=== PATIENT | male | born 1955 | race Caucasian/White ===

== ENCOUNTER 2020-01-03 17:13 | Inpatient (IN) | payer OTHER ==
[~2020-01-03] VITALS: Ht 188 cm; Wt 107.8 kg
[~2020-01-03 17:13] MED LIST: LIDOcaine 2% (20 mg/ml) 5ml cardiac syringe ONE; MAGNESIUM SULFATE 4 MEQ/ML (5gm/10ml) injection ONE; albumin (human) 25% 100 ML IV solution IV ONE; aminocaproic acid 250 MG/1 ML inj. ONE; calcium chloride 100 MG/1 ML inj IV ONE; heparin 1,000 units/ml 10ml inj ONE; heparin 10,000 units/1 ML INJ ONE; methylPREDNISolone sod. succ. 500mg inj ONE; papaverine 30 mg/ml 2ml inj. ONE; sodium bicarbonate (8.4%) 1 mEq/ml syringe ONE
[2020-01-03 18:04] LABS: BASOPHILS # (AUTO) 0.1 X10'3 (0-0.2); BASOPHILS % (AUTO) 0.4 % (0-1); EOSINOPHILS # (AUTO) 0.2 X10'3 (0-0.9); EOSINOPHILS % (AUTO) 1.9 % (0-6); HEMATOCRIT 47.9 % (42.0-52.0); HEMOGLOBIN 16.1 g/dl (14.0-17.9); LYMPHOCYTES # (AUTO) 1.4 X10'3 (1.1-4.8); LYMPHOCYTES % (AUTO) 10.3 % (21-51); MEAN CORPUSCULAR HEMOGLOBIN 30.6 PG (27.0-31.0); MEAN CORPUSCULAR HGB CONC 33.6 g/dL (33.0-36.5); MEAN PLATELET VOLUME 8.5 FL (7.4-10.4); MONOCYTES # (AUTO) 0.6 X10'3 (0-0.9); MONOCYTES % (AUTO) 4.8 % (2-12); NEUTROPHILS # (AUTO) 11.1 X10'3 (1.8-7.7); NEUTROPHILS % (AUTO) 82.6 % (42-75); PLATELET COUNT 249 X10'3 (140-440); RED BLOOD COUNT 5.27 X10'6 (4.70-6.10); RED CELL DISTRIBUTION WIDTH 13.9 % (11.5-14.5); WHITE BLOOD COUNT 13.4 X10'3 (4.5-11.0)
[2020-01-03 18:19] LABS: ALANINE AMINOTRANSFERASE 16 U/L (12-78); ALBUMIN 3.8 G/DL (3.4-5.0); ALBUMIN/GLOBULIN RATIO 1.1 (1.1-1.5); ALKALINE PHOSPHATASE 120 IU/L (46-116); ANION GAP 9 (8-16); ASPARTATE AMINO TRANSFERASE 18 U/L (10-37); BILIRUBIN,TOTAL 0.2 MG/DL (0.1-1.0); BLOOD UREA NITROGEN 14 MG/DL (7-18); BUN/CREATININE RATIO 14.4 (5.4-32.0); CALCIUM 9.2 MG/DL (8.5-10.1); CHLORIDE 103 MMOL/L (99-107); CREATININE 0.97 MG/DL (0.60-1.10); GLUCOSE 102 MG/DL (70-104); POTASSIUM 3.4 MMOL/L (3.5-5.1); SODIUM 140 MMOL/L (135-145); TOTAL CARBON DIOXIDE 27.9 MMOL/L (24-32); TOTAL PROTEIN 7.2 G/DL (6.4-8.2); eGFR 78 ML/MIN
[2020-01-03] MEDS ORDERED: enoxaparin 100mg/ml syringe SUBCUT ONE (18:25)
[2020-01-03 18:27] LABS: MAGNESIUM 2.3 MG/DL (1.5-2.4)
[2020-01-03] MEDS ORDERED: PHEN100C12 PO (18:34)
[2020-01-03] MEDS ORDERED: LOSA1TAB3 PO (18:35)
[2020-01-03] MEDS ORDERED: ALBU6.7H9 INH (18:38)
[2020-01-03] MEDS ORDERED: FLUT1BLS10 (18:38)
[2020-01-03] MEDS ORDERED: FLUT1DIS20 INH (18:38)
[2020-01-03] MEDS ORDERED: SIMV-42 PO (18:38)
--- NOTE | 2020-01-03 20:51 | NUR ---
MD Simon - Reconditioner and DO Christiano - Hospitalist consulting with patient at bedside now.
[2020-01-03] MEDS ORDERED: normal saline 1000ml 1,000 ML IV SCH (21:00)
[2020-01-03] MEDS ORDERED: magnesium 4gm in 100ml NS 100 ML IV PRN (21:05)
[2020-01-03] MEDS ORDERED: magnesium hydroxide 30ml (MOM) UD suspension PO PRN (21:05)
[2020-01-03] MEDS ORDERED: magnesium 2GM in 50ml NS 50 ML IV PRN (21:05)
[2020-01-03] MEDS ORDERED: potassium CL 10mEq/100ml bag 100 ML IV PRN (21:05)
[2020-01-03] MEDS ORDERED: acetaminophen 325mg tablet PO PRN (21:05)
[2020-01-03] MEDS ORDERED: potassium Cl 20 mEq SR tablet PO PRN (21:05)
[2020-01-03] MEDS ORDERED: potassium Cl 20mEq/100mL bag 100 ML IV PRN (21:05)
[2020-01-03] MEDS ORDERED: ondansetron/PF 4mg/2ml inj IV PRN (21:05)
[2020-01-03] MEDS ORDERED: mag hydrox/Alum hydrox/simeth 30ml oral suspension PO PRN (21:05)
[2020-01-03] MEDS ORDERED: heparin 10,000 units/1 ML INJ IV PRN (21:05)
[2020-01-03] MEDS ORDERED: ipratropium/albuterol 3ml nebule NEB PRN (21:05)
--- NOTE | 2020-01-03 21:17 | NUR ---
Per Dr. Montes, pt. can have clear liquids until breakfast. Angiogram to be done in the afternoon tomorrow.
[2020-01-03] MEDS ORDERED: nitroGLYCERIN 0.4mg/hour patch TD SCH (21:20)
[2020-01-03 21:32] LABS: PARTIAL THROMBOPLASTIN TIME 29 SECONDS (22-32)
[2020-01-03] MEDS: nicotine 21mg patch - 24 hr TD SCH (21:47)
--- NOTE | 2020-01-03 21:50 | NUR ---
Patient in room ED 8. I have received report from SHAHZAD LEWIS and had the opportunity to ask questions. AWAITING PATIENT ARRIVAL TO [facility].
--- NOTE | 2020-01-03 21:55 | NUR ---
PATIENT UP TO FLOOR 2155. PATIENT AMBULATED TO BED WITHOUT DIFFICULTY. BELONGINGS PLACED IN BEDSIDE TABLE. PLACED ON FILLING SEPARATOR 58 AND IS IN NSR. ON ROOM AIR AND STABLE AT THIS TIME. VS OBTAINED AND WNL. ALERT AND ORIENTED TO PERSON, PLACE, TIME AND EVENTS.
[2020-01-03 22:29] VITALS: BP 140/82
[2020-01-03] MEDS ORDERED: LORazepam 1 MG tablet PO PRN (22:30)
[2020-01-03] MEDS: temazepam 15mg capsule PO PRN (23:20)
[2020-01-04] VITALS (14 sets, daily range): BP systolic 114–166; BP diastolic 66–103
[2020-01-04 00:12] LABS: PHENYTOIN (DILANTIN) 2.5 UG/ML (10.0-20.0)
--- NOTE | 2020-01-04 01:15 | NUR ---
PAGER ID: [phone] MESSAGE: Ext. [phone], SHAHZAD Bailey for 3027A. 6 hr troponin 2.01 up from 1.86. EKG showed NSR. Patient stable and sleeping at this time. Just wanted to let you know! Thanks, Leo
[2020-01-04] MEDS: albuterol 2.5 MG/3 ML nebule NEB SCH ×4 (02:26→20:26)
[2020-01-04 05:25] LABS: BASOPHILS % (AUTO) 0.5 % (0-1); EOSINOPHILS # (AUTO) 0.3 X10'3 (0-0.9); EOSINOPHILS % (AUTO) 4.7 % (0-6); HEMATOCRIT 45.2 % (42.0-52.0); LYMPHOCYTES # (AUTO) 2.3 X10'3 (1.1-4.8); LYMPHOCYTES % (AUTO) 33.7 % (21-51); MEAN CORPUSCULAR HEMOGLOBIN 30.3 PG (27.0-31.0); MEAN CORPUSCULAR HGB CONC 33.1 g/dL (33.0-36.5); MEAN CORPUSCULAR VOLUME 91.3 FL (78-98); MEAN PLATELET VOLUME 8.7 FL (7.4-10.4); MONOCYTES # (AUTO) 0.4 X10'3 (0-0.9); MONOCYTES % (AUTO) 6.6 % (2-12); NEUTROPHILS # (AUTO) 3.7 X10'3 (1.8-7.7); NEUTROPHILS % (AUTO) 54.5 % (42-75); PLATELET COUNT 227 X10'3 (140-440); RED BLOOD COUNT 4.96 X10'6 (4.70-6.10); RED CELL DISTRIBUTION WIDTH 13.7 % (11.5-14.5); WHITE BLOOD COUNT 6.7 X10'3 (4.5-11.0)
[2020-01-04 05:35] LABS: ALANINE AMINOTRANSFERASE 13 U/L (12-78); ALBUMIN 3.3 G/DL (3.4-5.0); ALBUMIN/GLOBULIN RATIO 1.1 (1.1-1.5); ALKALINE PHOSPHATASE 104 IU/L (46-116); ANION GAP 7 (8-16); ASPARTATE AMINO TRANSFERASE 22 U/L (10-37); BILIRUBIN,TOTAL 0.3 MG/DL (0.1-1.0); BLOOD UREA NITROGEN 11 MG/DL (7-18); BUN/CREATININE RATIO 12.9 (5.4-32.0); CALCIUM 8.5 MG/DL (8.5-10.1); CHLORIDE 106 MMOL/L (99-107); CREATININE 0.85 MG/DL (0.60-1.10); GLUCOSE 87 MG/DL (70-104); POTASSIUM 3.2 MMOL/L (3.5-5.1); SODIUM 143 MMOL/L (135-145); TOTAL CARBON DIOXIDE 30.3 MMOL/L (24-32); TOTAL PROTEIN 6.2 G/DL (6.4-8.2); eGFR > 90 ML/MIN
[2020-01-04 05:38] LABS: CHOL/HDL RATIO 5.5 (0.00-4.99); CHOLESTEROL 182 MG/DL (0-200); HDL CHOLESTEROL 33 MG/DL (35-60); LDL CHOLESTEROL 116 MG/DL (50-100); TRIGLYCERIDES 181 MG/DL (20-135)
[2020-01-04] MEDS ORDERED: heparin 10,000 units/1 ML INJ IV ONE (06:30)
[2020-01-04] MEDS ORDERED: heparin 25,000 UNIT/250ml bag 250 ML IV SCH (06:30)
--- NOTE | 2020-01-04 06:49 | NUR ---
Patient in room U 3027A. I have received report from SHAHZAD CUEVAS AND JULIO RN and had the opportunity to ask questions and assume patient care. Addendum: 01/04/20 at 0654 by Gopi Kruger RN Problems reprioritized. Patient report given, questions answered & plan of care reviewed with SHAHZAD CUEVAS AND SHAHZAD KIM.
[2020-01-04] MEDS: tirofiban 5mg in NS 100mL 100 ML IV SCH ×2 (06:53→09:58)
--- NOTE | 2020-01-04 07:18 | NUR ---
Patient in room PCU 3027. I have received report from Leo PIKE and had the opportunity to ask questions and assume patient care.
[2020-01-04] MEDS: budesonide 0.5mg/2ml UD nebule IH SCH ×2 (08:18→20:27)
--- NOTE | 2020-01-04 09:40 | NUR ---
Paged Dr. Hurd: PAGER ID: [phone] MESSAGE: RE: Estevan Barbour [id number].. Patient complaints of headache. Can we have a PRN medicine for pain? Thank you. Charito [phone]
[2020-01-04] MEDS: losartan 50mg tablet PO SCH (09:41)
[2020-01-04] MEDS: HYDROchlorothiazide 12.5mg capsule PO SCH (09:41)
[2020-01-04] MEDS: phenytoin sod ER 100mg capsule PO SCH ×2 (09:41→20:57)
[2020-01-04] MEDS ORDERED: acetaminophen 325mg tablet PO PRN (09:45)
[2020-01-04] MEDS ORDERED: fentaNYL/PF 50MCG/1 ML 2ML syringe ONE (13:24)
[2020-01-04] MEDS ORDERED: midazolam 2 mg/2 ml injection ONE ×2 (13:24→13:58)
[2020-01-04] MEDS ORDERED: LIDOcaine 1% (10mg/ml)w/preservative injection 20ml MDV ONE (13:25)
[2020-01-04] MEDS ORDERED: iohexol 350MG/ML 100ml bottle IV ONE (13:25)
[2020-01-04] MEDS ORDERED: iohexol 350 MG/ML 50ML vial IV ONE (13:25)
--- NOTE | 2020-01-04 13:42 | NUR ---
Patient headed to cath lad via wheelchair and Nurse. Patient VSS per MD orders to cath.
[2020-01-04] MEDS ORDERED: hydrALAZINE 20mg/ml inj. IV ONE (14:28)
[2020-01-04] MEDS ORDERED: nitroGLYCERIN 0.4mg SUBLingual tab SL PRN (15:05)
[2020-01-04] MEDS ORDERED: OXAZEpam 15mg capsule PO PRN (15:05)
[2020-01-04] MEDS ORDERED: ondansetron/PF 4mg/2ml inj IV PRN (15:05)
[2020-01-04] MEDS ORDERED: HYDROcodone/acetaminophen 10/325mg tab PO PRN (15:05)
[2020-01-04] MEDS ORDERED: proCHLORperazine 10 MG/2 ml inj IV PRN (15:05)
[2020-01-04] MEDS ORDERED: Insulin Reg/NS 100units/100mL 100 ML IV SCH (15:17)
[2020-01-04] MEDS ORDERED: gabapentin 400mg capsule PO ONE (15:20)
[2020-01-04] MEDS ORDERED: MALTODEXTRIN/FRUCTOSE 0.68 KCAL/ML LIQUID 296ML BOTTLE PO ONE (15:20)
[2020-01-04] MEDS ORDERED: insulin glargine (Lantus) pen - multi-dose SQ PRN (15:20)
[2020-01-04] MEDS ORDERED: MESSAGE TO NURSING PO ONE ×3 (15:20)
[2020-01-04] MEDS ORDERED: dextrose 50%-water 50ml dispensing syringe IV PRN (15:20)
[2020-01-04] MEDS: HYDROcodone/acetaminophen 5mg/325mg tablet PO PRN ×2 (15:44→20:52)
[2020-01-04] MEDS: normal saline 1000ml 1,000 ML IV SCH (15:45)
[2020-01-04 16:08] LABS: PARTIAL THROMBOPLASTIN TIME 31 SECONDS (22-32)
[2020-01-04] MEDS ORDERED: potassium CL 10mEq/100ml bag 100 ML IV PRN (17:05)
[2020-01-04] MEDS ORDERED: potassium Cl 20 mEq SR tablet PO PRN (17:05)
[2020-01-04] MEDS: potassium Cl 20 mEq SR tablet PO PRN (17:20)
--- NOTE | 2020-01-04 18:25 | NUR ---
Problems reprioritized. Patient report given, questions answered & plan of care reviewed with Leo PIKE. Patient stable to transfer care.
--- NOTE | 2020-01-04 18:27 | NUR ---
Problems reprioritized. Patient report given, questions answered & plan of care reviewed with Leo PIKE. Patient stable at transfer of care.
--- NOTE | 2020-01-04 18:30 | NUR ---
Patient in room PCU 3021p. I have received report from Charito RN and Raquel RN and had the opportunity to ask questions and assume patient care. Patient sleeping for bedside report. Flat until 2240. NS infusing at 100 mL/hr per provider order. Will continue to monitor closely.
[2020-01-04] MEDS ORDERED: metoprolol tartrate 12.5mg (1/2 tablet) PO SCH (20:00)
[2020-01-04] MEDS: temazepam 15mg capsule PO PRN (20:58)
[2020-01-04] MEDS: atorvastatin 20mg tablet PO SCH (20:58)
[2020-01-04] MEDS: metoprolol tartrate 12.5mg (1/2 tablet) PO SCH (20:59)
[2020-01-04] MEDS: nicotine 21mg patch - 24 hr TD SCH (21:00)
[2020-01-04] MEDS: amLODIPine 2.5mg tablet PO SCH (21:07)
[2020-01-05] MEDS: potassium Cl 20 mEq SR tablet PO PRN (01:05)
[2020-01-05] MEDS: albuterol 2.5 MG/3 ML nebule NEB SCH ×4 (02:34→20:26)
[2020-01-05] MEDS: normal saline 1000ml 1,000 ML IV SCH (02:45)
--- NOTE | 2020-01-05 03:51 | NUR ---
PATIENT REFUSED 0300 VS. EDUCATED PATIENT ON IMPORTANCE OF Q4HR VS AND FACT THAT PATIENT IS POST-OP FROM HEART CATH. WILL CONTINUE TO REVISIT EDUCATION TOPICS.
[2020-01-05] MEDS ORDERED: MESSAGE TO NURSING PO ONE (05:30)
[2020-01-05 05:59] LABS: BASOPHILS % (AUTO) 0.5 % (0-1); EOSINOPHILS # (AUTO) 0.3 X10'3 (0-0.9); EOSINOPHILS % (AUTO) 4.2 % (0-6); HEMATOCRIT 45.1 % (42.0-52.0); HEMOGLOBIN 15.1 g/dl (14.0-17.9); LYMPHOCYTES # (AUTO) 1.4 X10'3 (1.1-4.8); LYMPHOCYTES % (AUTO) 17.5 % (21-51); MEAN CORPUSCULAR HEMOGLOBIN 30.4 PG (27.0-31.0); MEAN CORPUSCULAR HGB CONC 33.4 g/dL (33.0-36.5); MEAN CORPUSCULAR VOLUME 90.9 FL (78-98); MEAN PLATELET VOLUME 9.5 FL (7.4-10.4); MONOCYTES # (AUTO) 0.6 X10'3 (0-0.9); MONOCYTES % (AUTO) 6.8 % (2-12); NEUTROPHILS # (AUTO) 5.8 X10'3 (1.8-7.7); PLATELET COUNT 203 X10'3 (140-440); RED BLOOD COUNT 4.96 X10'6 (4.70-6.10); RED CELL DISTRIBUTION WIDTH 13.8 % (11.5-14.5); WHITE BLOOD COUNT 8.2 X10'3 (4.5-11.0)
[2020-01-05 06:06] LABS: ALANINE AMINOTRANSFERASE 16 U/L (12-78); ALBUMIN 3.2 G/DL (3.4-5.0); ALKALINE PHOSPHATASE 107 IU/L (46-116); ANION GAP 6 (8-16); ASPARTATE AMINO TRANSFERASE 18 U/L (10-37); BILIRUBIN,TOTAL 0.2 MG/DL (0.1-1.0); BLOOD UREA NITROGEN 12 MG/DL (7-18); BUN/CREATININE RATIO 15.4 (5.4-32.0); CALCIUM 8.4 MG/DL (8.5-10.1); CHLORIDE 109 MMOL/L (99-107); CREATININE 0.78 MG/DL (0.60-1.10); GLUCOSE 77 MG/DL (70-104); POTASSIUM 3.8 MMOL/L (3.5-5.1); SODIUM 141 MMOL/L (135-145); TOTAL CARBON DIOXIDE 26.3 MMOL/L (24-32); TOTAL PROTEIN 6.4 G/DL (6.4-8.2); eGFR > 90 ML/MIN
--- NOTE | 2020-01-05 06:14 | NUR ---
Problems reprioritized. Patient report given, questions answered & plan of care reviewed with SHAHZAD CUEVAS.
--- NOTE | 2020-01-05 06:40 | NUR ---
Patient in room PCU 3027. I have received report from Leo PIKE and had the opportunity to ask questions and assume patient care.
--- NOTE | 2020-01-05 06:42 | NUR ---
Patient in room U 3027. I have received report from Leo IPKE and had the opportunity to ask questions and assume patient care. Patient asleep in bed and resting comfortably.
[2020-01-05 07:00] VITALS: BP 151/86
[2020-01-05] MEDS: amLODIPine 2.5mg tablet PO SCH ×2 (07:36→20:36)
[2020-01-05] MEDS: HYDROchlorothiazide 12.5mg capsule PO SCH (07:36)
[2020-01-05] MEDS: losartan 50mg tablet PO SCH (07:36)
[2020-01-05] MEDS: phenytoin sod ER 100mg capsule PO SCH ×2 (07:37→20:37)
[2020-01-05] MEDS: metoprolol tartrate 12.5mg (1/2 tablet) PO SCH ×2 (07:37→20:39)
[2020-01-05] MEDS: HYDROcodone/acetaminophen 5mg/325mg tablet PO PRN (07:38)
[2020-01-05] MEDS: budesonide 0.5mg/2ml UD nebule IH SCH ×2 (08:38→20:26)
[2020-01-05 09:41] LABS: ABG BASE EXCESS 3.9 mmol/L (-2.0-3.0); ABG HCO3 27.5 mmol/L (22.0-26.0); ABG OXYGEN SATURATION 95.7 % (95-98); ABG PCO2 (T) 38.1 mmHg (35.0-45.0); ABG PH (T) 7.476 (7.350-7.450); ABG PO2 (T) 76.9 mmHg (83-108); ALLEN'S TEST POSITIVE; FMetHb 0.1 % (0.3-1.12); FO2Hb 94.6 % (94-100); TOTAL HEMOGLOBIN 16.3 G/dl (14.0-17.9)
[2020-01-05 11:00] VITALS: BP 145/79
[2020-01-05 15:00] VITALS: BP 123/69
--- NOTE | 2020-01-05 17:32 | NUR ---
Patient was educated on insulin and hospital protocols in regards to insulin and sugar levels. Patient refused all insulin and blood sugar control, as patient only wanted the medications that he takes at home. Patient stated that, the insulin hurts his belly and gives him bruises throughout abdomen. Patient was educated on insulin administration, but patient still refused all interventions at hospital level. Dr. Medina was notified, No new orders were given. Patient is aware that Blood glucose will be tested ACHS, and the patient will be consulted in insulin and medication. Patient stated that he will not letting us administer any insulin. Will continue to monitor.
--- NOTE | 2020-01-05 18:50 | NUR ---
Problems reprioritized. Patient report given, questions answered & plan of care reviewed with Leo PIKE. Patient stable at transfer of care.
--- NOTE | 2020-01-05 18:50 | NUR ---
Patient in room PCU 3028T. I have received report from FAITH RN AND JULIO RN and had the opportunity to ask questions and assume patient care.
[2020-01-05 19:00] VITALS: BP 150/83
--- NOTE | 2020-01-05 19:01 | NUR ---
[place]ee documentation: I have reviewed and agree with all interventions, assessments performed and documented by SHAHZAD García.\ [place] Medication Administration: For this medication-pass time frame, all medication were reviewed, dispensed, administered and documented per hospital policy by SHAHZAD García.
[2020-01-05] MEDS: nicotine 21mg patch - 24 hr TD SCH (20:00)
[2020-01-05] MEDS: mupirocin 2% ointment 22GM NS SCH ×2 (20:00→20:36)
--- NOTE | 2020-01-05 20:26 | NUR ---
PER DR. LONG, NICOTINE PATCH CONTRAINDICATED PRIOR TO DAY OF SURGERY FOR CABG. EDUCATED PATIENT ON CONTRAINDICATIONS, BEING THAT NICOTINE PROMOTES VASOCONSTRICTION AND DELAYS WOUND HEALING TIME. PATIENT VERBALLY ACKNOWLEDGED TEACHING TOPIC. WILL CONTINUE TO EDUCATE PATIENT ON IMPORTANCE OF ABSTAINING FROM NICOTINE USE.
[2020-01-05] MEDS: atorvastatin 20mg tablet PO SCH (20:36)
--- NOTE | 2020-01-05 23:59 | NUR ---
PATIENT REFUSED 2300 VITAL SIGNS. EDUCATED PATIENT ON IMPORTANCE OF Q4HR VS. WILL CONTINUE TO MONITOR CLOSELY.
[2020-01-06] VITALS (17 sets, daily range): BP systolic 112–189; BP diastolic 51–91
[2020-01-06] MEDS: albuterol 2.5 MG/3 ML nebule NEB SCH ×4 (02:36→21:19)
[2020-01-06] MEDS ORDERED: MALTODEXTRIN/FRUCTOSE 0.68 KCAL/ML LIQUID 296ML BOTTLE PO ONE (03:30)
[2020-01-06] MEDS ORDERED: ceFAZolin 1000mg inj ONE (05:18)
[2020-01-06] MEDS ORDERED: cefazolin/dext.iso 2gm/50ml 50 ML IV ONE (05:30)
[2020-01-06] MEDS ORDERED: gabapentin 400mg capsule PO ONE (05:30)
[2020-01-06] MEDS ORDERED: vancomycin/NS 1 GM ADD-VANTAGE 250 ML IV ONE (05:30)
[2020-01-06] MEDS ORDERED: LORazepam 2 mg/ml vial IV ONE (06:00)
[2020-01-06] MEDS ORDERED: famotidine 20mg tablet PO ONE (06:00)
[2020-01-06 06:05] LABS: ALANINE AMINOTRANSFERASE 19 U/L (12-78); ALBUMIN 3.3 G/DL (3.4-5.0); ALKALINE PHOSPHATASE 102 IU/L (46-116); ANION GAP 8 (8-16); BILIRUBIN,TOTAL 0.3 MG/DL (0.1-1.0); BLOOD UREA NITROGEN 11 MG/DL (7-18); BUN/CREATININE RATIO 12.4 (5.4-32.0); CALCIUM 8.4 MG/DL (8.5-10.1); CHLORIDE 106 MMOL/L (99-107); CREATININE 0.89 MG/DL (0.60-1.10); GLUCOSE 201 MG/DL (70-104); SODIUM 140 MMOL/L (135-145); TOTAL CARBON DIOXIDE 25.6 MMOL/L (24-32); TOTAL PROTEIN 6.5 G/DL (6.4-8.2); eGFR 86 ML/MIN
[2020-01-06 06:06] LABS: ASPARTATE AMINO TRANSFERASE 34 U/L (10-37); POTASSIUM 3.5 MMOL/L (3.5-5.1)
[2020-01-06] MEDS: mupirocin 2% ointment 22GM NS SCH (06:06)
[2020-01-06 06:21] LABS: BASOPHILS % (AUTO) 0.5 % (0-1); EOSINOPHILS # (AUTO) 0.3 X10'3 (0-0.9); EOSINOPHILS % (AUTO) 5.9 % (0-6); HEMOGLOBIN 14.3 g/dl (14.0-17.9); LYMPHOCYTES # (AUTO) 1.2 X10'3 (1.1-4.8); MEAN CORPUSCULAR HEMOGLOBIN 30.5 PG (27.0-31.0); MEAN CORPUSCULAR HGB CONC 33.3 g/dL (33.0-36.5); MEAN CORPUSCULAR VOLUME 91.3 FL (78-98); MEAN PLATELET VOLUME 9.2 FL (7.4-10.4); MONOCYTES # (AUTO) 0.4 X10'3 (0-0.9); MONOCYTES % (AUTO) 8.1 % (2-12); NEUTROPHILS # (AUTO) 3.4 X10'3 (1.8-7.7); NEUTROPHILS % (AUTO) 62.5 % (42-75); PLATELET COUNT 190 X10'3 (140-440); RED CELL DISTRIBUTION WIDTH 13.6 % (11.5-14.5); WHITE BLOOD COUNT 5.4 X10'3 (4.5-11.0)
--- NOTE | 2020-01-06 06:32 | NUR ---
Problems reprioritized. Patient report given, questions answered & plan of care reviewed with SHAHZAD CUEVAS AND SHAHZAD KIM.
--- NOTE | 2020-01-06 06:41 | NUR ---
Patient in room PCU 3027. I have received report from Leo PIKE and had the opportunity to ask questions and assume patient care.
[2020-01-06] MEDS ORDERED: SUFENTANIL CITRATE 50 MCG/ML 2ml ampule IV ONE (06:47)
[2020-01-06] MEDS ORDERED: rocuronium 10mg/ml inj IV ONE ×3 (06:47)
[2020-01-06] MEDS ORDERED: midazolam 2 mg/2 ml injection ONE ×2 (06:47)
[2020-01-06] MEDS ORDERED: propofol inj 20 ML IV ONE (06:47)
[2020-01-06] MEDS ORDERED: niCARDipine in NS 40mg/200ml (0.2mg/ml) IVPB IV ONE (06:48)
[2020-01-06] MEDS ORDERED: nitroGLYCERIN in D5W 50mg/250ml (Tridil) infusion IV ONE (06:48)
[2020-01-06] MEDS ORDERED: protamine sulf. 10mg/ml inj. IV ONE (06:48)
[2020-01-06] MEDS ORDERED: aminocaproic acid 250 MG/1 ML inj. ONE (06:48)
[2020-01-06] MEDS ORDERED: sevoflurane 250ml liquid IH ONE (06:48)
--- NOTE | 2020-01-06 06:50 | NUR ---
CVOR RN bedside for patient. 2 mg IV ativan given. Patient to OR.
[2020-01-06] MEDS: budesonide 0.5mg/2ml UD nebule IH SCH ×2 (07:34→21:19)
[2020-01-06] MEDS: phenytoin sod ER 100mg capsule PO SCH ×2 (08:00→20:11)
[2020-01-06] MEDS ORDERED: ePHEDrine 50MG/ML INJ. ONE (08:12)
[2020-01-06] MEDS ORDERED: papaverine 30 mg/ml 2ml inj. IA ONE (08:17)
[2020-01-06] MEDS ORDERED: heparin 10,000 units/1 ML INJ IR ONE (08:17)
[2020-01-06 08:20] LABS: ABG BASE EXCESS VENOUS 1.5 mmol/L; ABG HCO3 VENOUS 28.5 mmol/L; ABG PCO2 VENOUS 54.8 mmHg; ABG PO2 VENOUS 43.7 mmHg; CL (ABG) 103 mmol/L (99-107); FCOHb VENOUS 1.1 %; FHHb VENOUS 20.9 %; FMetHb VENOUS 0.5 %; FO2Hb VENOUS 77.5 %; GLUCOSE (ABG) 100 mg/dl (70-104); IONIZED CA (ABG) 1.16 mmol/L (1.03-1.32); K (ABG) 3.9 mmol/L (3.3-5.1); NA (ABG) 136 mmol/L (135-145); TOTAL HEMOGLOBIN 14.2 G/dl (14.0-17.9)
[2020-01-06 08:51] LABS: ABG HCO3 26.3 mmol/L (22.0-26.0); ABG OXYGEN SATURATION 99.3 % (95-98); ABG PCO2 44.5 mmHg (35.0-45.0); ABG PH 7.389 (7.350-7.450); CL (ABG) 103 mmol/L (99-107); FCOHb 0.4 % (0.5-1.5); FMetHb 0.4 % (0.3-1.12); FO2Hb 98.5 % (94-100); GLUCOSE (ABG) 93 mg/dl (70-104); IONIZED CA (ABG) 1.04 mmol/L (1.03-1.32); K (ABG) 4.7 mmol/L (3.3-5.1); NA (ABG) 134 mmol/L (135-145); TOTAL HEMOGLOBIN 11.6 G/dl (14.0-17.9)
[2020-01-06 09:20] LABS: ABG BASE EXCESS 0.6 mmol/L (-2.0-3.0); ABG HCO3 25.2 mmol/L (22.0-26.0); ABG PCO2 40.3 mmHg (35.0-45.0); ABG PH 7.414 (7.350-7.450); ABG PO2 194.8 mmHg (60.0-100.0); CL (ABG) 104 mmol/L (99-107); FCOHb 0.3 % (0.5-1.5); FMetHb 0.4 % (0.3-1.12); FO2Hb 98.3 % (94-100); GLUCOSE (ABG) 110 mg/dl (70-104); IONIZED CA (ABG) 1.07 mmol/L (1.03-1.32); K (ABG) 5.1 mmol/L (3.3-5.1); NA (ABG) 134 mmol/L (135-145); TOTAL HEMOGLOBIN 12.1 G/dl (14.0-17.9)
[2020-01-06 09:41] LABS: ABG BASE EXCESS 3.1 mmol/L (-2.0-3.0); ABG HCO3 28.3 mmol/L (22.0-26.0); ABG OXYGEN SATURATION 98.8 % (95-98); ABG PCO2 45.8 mmHg (35.0-45.0); ABG PH 7.409 (7.350-7.450); ABG PO2 159.3 mmHg (60.0-100.0); CL (ABG) 103 mmol/L (99-107); FCOHb 0.2 % (0.5-1.5); FMetHb 0.5 % (0.3-1.12); FO2Hb 98.1 % (94-100); GLUCOSE (ABG) 123 mg/dl (70-104); IONIZED CA (ABG) 1.33 mmol/L (1.03-1.32); NA (ABG) 133 mmol/L (135-145); TOTAL HEMOGLOBIN 11.3 G/dl (14.0-17.9)
[2020-01-06 10:01] LABS: ABG BASE EXCESS VENOUS -2.4 mmol/L; ABG HCO3 VENOUS 24.5 mmol/L; ABG PCO2 VENOUS 51.3 mmHg; ABG PO2 VENOUS 55.5 mmHg; CL (ABG) 103 mmol/L (99-107); FCOHb VENOUS 0.5 %; FHHb VENOUS 11.5 %; FMetHb VENOUS 0.5 %; FO2Hb VENOUS 87.5 %; GLUCOSE (ABG) 127 mg/dl (70-104); K (ABG) 4.4 mmol/L (3.3-5.1); NA (ABG) 134 mmol/L (135-145); TOTAL HEMOGLOBIN 12.1 G/dl (14.0-17.9)
[2020-01-06] MEDS ORDERED: acetaminophen 1,000mg/100ml IV 100 ML IV ONE (10:20)
[2020-01-06] MEDS ORDERED: niCARDipine-NS 40mg/200ml IVPB 200 ML IV PRN (10:39)
[2020-01-06] MEDS ORDERED: Insulin Reg/NS 100units/100mL 100 ML IV SCH (10:39)
[2020-01-06] MEDS ORDERED: nitroGLYCERIN-Tridil 50MG/D5W 250 ML IV PRN (10:39)
[2020-01-06] MEDS ORDERED: DOPamine 400mg/D5W 250ml 250 ML IV PRN (10:39)
[2020-01-06 10:40] LABS: ISTAT ANION GAP 7 (8-12); ISTAT BUN 11 mg/dL (6-19); ISTAT CL 104 mmol/L (99-107); ISTAT CREATININE 0.8 mg/dL (0.8-1.3); ISTAT GLUCOSE 101 mg/dL (70-104); ISTAT HGB 10.9 g/dl (14.0-18.0); ISTAT Hct 32 %PCV (42-52); ISTAT IONIZED CALCIUM 1.07 mmol/L (1.03-1.32); ISTAT NA 137 mmol/L (135-145); ISTAT TOTAL CO2 26 mmol/L (24-32); ISTAT eGFR > 90 ML/MIN; POC BUN/CREATININE RATIO 13.8 (5.4-32.0)
[2020-01-06 10:40] LABS: ISTAT ANION GAP 11 (8-12); ISTAT BUN 12 mg/dL (6-19); ISTAT CL 102 mmol/L (99-107); ISTAT CREATININE 0.7 mg/dL (0.8-1.3); ISTAT GLUCOSE 110 mg/dL (70-104); ISTAT HGB 15.6 g/dl (14.0-18.0); ISTAT Hct 46 %PCV (42-52); ISTAT IONIZED CALCIUM 1.24 mmol/L (1.03-1.32); ISTAT K 3.5 mmol/L (3.5-5.1); ISTAT NA 140 mmol/L (135-145); ISTAT TOTAL CO2 27 mmol/L (24-32); ISTAT eGFR > 90 ML/MIN; POC BUN/CREATININE RATIO 17.1 (5.4-32.0)
[2020-01-06] MEDS ORDERED: magnesium citrate 296ml oral solution PO PRN (10:40)
[2020-01-06] MEDS ORDERED: metoclopramide 5 mg/ml inj IV PRN (10:40)
[2020-01-06] MEDS ORDERED: sodium phosphate inj. 15 MMOL in dextrose 5%-water 250 ML IV PRN (10:40)
[2020-01-06] MEDS ORDERED: insulin glargine (Lantus) pen - multi-dose SQ PRN (10:40)
[2020-01-06] MEDS ORDERED: dextrose 50%-water 50ml dispensing syringe IV PRN (10:40)
[2020-01-06] MEDS ORDERED: ondansetron/PF 4mg/2ml inj IV PRN (10:40)
[2020-01-06] MEDS ORDERED: magnesium hydroxide 30ml (MOM) UD suspension PO PRN (10:40)
[2020-01-06] MEDS ORDERED: pantoprazole 40 MG vial IV ONE (10:40)
[2020-01-06] MEDS ORDERED: normal saline 250ml IV soln 250 ML IV PRN (10:40)
[2020-01-06] MEDS ORDERED: Neutra Phos packet PO PRN (10:40)
[2020-01-06] MEDS ORDERED: bisacodyl 10mg suppository rectal RC PRN (10:40)
[2020-01-06] MEDS ORDERED: magnesium 4gm in 100ml NS 100 ML IV PRN (10:40)
[2020-01-06] MEDS ORDERED: albumin (Human) 5% 250ml 250 ML IV PRN (10:40)
[2020-01-06] MEDS ORDERED: sodium phosphate inj. 30 MMOL in dextrose 5%-water 250 ML IV PRN (10:40)
[2020-01-06] MEDS ORDERED: acetaminophen 325mg tablet PO PRN (10:40)
[2020-01-06] MEDS ORDERED: mineral oil 133ml enema RC PRN (10:40)
--- NOTE | 2020-01-06 10:45 | NUR ---
Received to room 2040, accompanied by Chetna Childs and surgical crew. Placed on ventilator, to groundwater monitoring technician, arterial line and PA line pressure monitored. Chest tubes to suction at 20 cm. Buchanan cath to gravity drainage. Dressings are dry and intact. See assessment record. All vasoactive drugs are infusing via central line.
[2020-01-06] MEDS ORDERED: morphine 4 MG/ML inj SYRINge ONE (10:52)
[2020-01-06] MEDS: morphine 4 MG/ML inj SYRINge IV PRN ×5 (10:56→23:55)
[2020-01-06] MEDS: Insulin Reg/NS 100units/100mL 100 ML IV SCH (11:00)
[2020-01-06 11:08] LABS: BASOPHILS % (AUTO) 0.2 % (0-1); EOSINOPHILS # (AUTO) 0.2 X10'3 (0-0.9); EOSINOPHILS % (AUTO) 1.3 % (0-6); HEMOGLOBIN 14.2 g/dl (14.0-17.9); LYMPHOCYTES # (AUTO) 0.9 X10'3 (1.1-4.8); LYMPHOCYTES % (AUTO) 6.2 % (21-51); MEAN CORPUSCULAR HGB CONC 32.9 g/dL (33.0-36.5); MEAN CORPUSCULAR VOLUME 91.3 FL (78-98); MEAN PLATELET VOLUME 8.7 FL (7.4-10.4); MONOCYTES # (AUTO) 0.4 X10'3 (0-0.9); MONOCYTES % (AUTO) 2.9 % (2-12); NEUTROPHILS # (AUTO) 13.7 X10'3 (1.8-7.7); NEUTROPHILS % (AUTO) 89.4 % (42-75); PLATELET COUNT 140 X10'3 (140-440); RED BLOOD COUNT 4.71 X10'6 (4.70-6.10); RED CELL DISTRIBUTION WIDTH 13.8 % (11.5-14.5); WHITE BLOOD COUNT 15.3 X10'3 (4.5-11.0)
[2020-01-06] MEDS ORDERED: propofol 1000mg/100ml bottle 100 ML IV ONE (11:08)
[2020-01-06 11:10] LABS: ABG BASE EXCESS -3.3 mmol/L (-2.0-3.0); ABG OXYGEN SATURATION 97.8 % (95-98); ABG PCO2 (T) 45.7 mmHg (35.0-45.0); ABG PH (T) 7.319 (7.350-7.450); ABG PO2 (T) 104.7 mmHg (83-108); FCOHb 0.5 % (0.5-1.5); FMetHb 0.4 % (0.3-1.12); FO2Hb 96.9 % (94-100); PATIENT TEMPERATURE 36.9; PEEP 5 cm H2O; RESPIRATORY RATE 14 b/min; TIDAL VOLUME 600 mL; TOTAL HEMOGLOBIN 15.4 G/dl (14.0-17.9)
--- NOTE | 2020-01-06 11:10 | NUR ---
CABG Consult: Pt s/p CABGx3 will need CABG/HH diet eds once stable prior to discharge. Addendum: 01/06/20 at [address] Amended: Links added.
[2020-01-06 11:18] LABS: PARTIAL THROMBOPLASTIN TIME 27 SECONDS (22-32)
[2020-01-06 11:19] LABS: ALANINE AMINOTRANSFERASE 21 U/L (12-78); ALBUMIN 3.2 G/DL (3.4-5.0); ALBUMIN/GLOBULIN RATIO 1.3 (1.1-1.5); ALKALINE PHOSPHATASE 88 IU/L (46-116); ANION GAP 5 (8-16); ASPARTATE AMINO TRANSFERASE 37 U/L (10-37); BILIRUBIN,TOTAL 0.5 MG/DL (0.1-1.0); BLOOD UREA NITROGEN 11 MG/DL (7-18); BUN/CREATININE RATIO 10.8 (5.4-32.0); CALCIUM 8.1 MG/DL (8.5-10.1); CHLORIDE 109 MMOL/L (99-107); CREATININE 1.02 MG/DL (0.60-1.10); GLUCOSE 149 MG/DL (70-104); MAGNESIUM 2.8 MG/DL (1.5-2.4); PHOSPHORUS 2.8 MG/DL (2.3-4.5); POTASSIUM 4.3 MMOL/L (3.5-5.1); SODIUM 141 MMOL/L (135-145); TOTAL CARBON DIOXIDE 26.6 MMOL/L (24-32); TOTAL PROTEIN 5.7 G/DL (6.4-8.2); eGFR 74 ML/MIN
[2020-01-06] MEDS: sodium chloride 0.45% 1,000 ML IV SCH (11:26)
[2020-01-06] MEDS: potassium Cl 20mEq/100mL bag 100 ML IV PRN ×3 (11:47→17:19)
[2020-01-06] MEDS: gabapentin 300mg capsule PO SCH ×2 (12:34→20:11)
[2020-01-06 13:18] LABS: ISTAT K 5.2 mmol/L (3.5-5.1)
[2020-01-06 13:41] LABS: ABG BASE EXCESS -3.6 mmol/L (-2.0-3.0); ABG HCO3 21.6 mmol/L (22.0-26.0); ABG OXYGEN SATURATION 98.3 % (95-98); ABG PCO2 (T) 38.7 mmHg (35.0-45.0); ABG PH (T) 7.363 (7.350-7.450); ABG PO2 (T) 116.9 mmHg (83-108); FCOHb 0.2 % (0.5-1.5); FMetHb 0.2 % (0.3-1.12); FO2Hb 97.9 % (94-100); PATIENT TEMPERATURE 36.4; PEEP 5 cm H2O; TOTAL HEMOGLOBIN 15.1 G/dl (14.0-17.9)
[2020-01-06] MEDS: ceFAZolin 1GM/D5W- ADD-VANTAGE 50 ML IV SCH (16:06)
[2020-01-06 16:58] LABS: BASOPHILS % (AUTO) 0.3 % (0-1); EOSINOPHILS % (AUTO) 0.1 % (0-6); HEMATOCRIT 43.4 % (42.0-52.0); HEMOGLOBIN 14.2 g/dl (14.0-17.9); LYMPHOCYTES # (AUTO) 0.4 X10'3 (1.1-4.8); LYMPHOCYTES % (AUTO) 3.1 % (21-51); MEAN CORPUSCULAR HEMOGLOBIN 30.3 PG (27.0-31.0); MEAN CORPUSCULAR HGB CONC 32.8 g/dL (33.0-36.5); MEAN CORPUSCULAR VOLUME 92.3 FL (78-98); MEAN PLATELET VOLUME 9.1 FL (7.4-10.4); MONOCYTES # (AUTO) 0.5 X10'3 (0-0.9); MONOCYTES % (AUTO) 3.3 % (2-12); NEUTROPHILS # (AUTO) 12.9 X10'3 (1.8-7.7); NEUTROPHILS % (AUTO) 93.2 % (42-75); PLATELET COUNT 149 X10'3 (140-440); RED CELL DISTRIBUTION WIDTH 13.9 % (11.5-14.5); WHITE BLOOD COUNT 13.8 X10'3 (4.5-11.0)
[2020-01-06 17:07] LABS: ALBUMIN 3.2 G/DL (3.4-5.0); ANION GAP 7 (8-16); BLOOD UREA NITROGEN 14 MG/DL (7-18); BUN/CREATININE RATIO 13.2 (5.4-32.0); CALCIUM 8.2 MG/DL (8.5-10.1); CHLORIDE 110 MMOL/L (99-107); CREATININE 1.06 MG/DL (0.60-1.10); GLUCOSE 140 MG/DL (70-104); MAGNESIUM 2.4 MG/DL (1.5-2.4); PHOSPHORUS 2.2 MG/DL (2.3-4.5); POTASSIUM 4.4 MMOL/L (3.5-5.1); SODIUM 143 MMOL/L (135-145); TOTAL CARBON DIOXIDE 26.4 MMOL/L (24-32); eGFR 71 ML/MIN
[2020-01-06] MEDS: magnesium 2GM in 50ml NS 50 ML IV PRN (17:18)
--- NOTE | 2020-01-06 18:14 | NUR ---
Problems reprioritized. Patient report given, questions answered & plan of care reviewed with Lisa PIKE.
[2020-01-06] MEDS: HYDROcodone/acetaminophen 10/325mg tab PO PRN (18:44)
[2020-01-06] MEDS: mupirocin 2% nasal ointment 1gm UD NS SCH (20:10)
[2020-01-06] MEDS: vancomycin/NS 1 GM ADD-VANTAGE 250 ML IV SCH (20:10)
[2020-01-06] MEDS: sennosides/docusate sodium tablet PO SCH (20:11)
[2020-01-07] VITALS (24 sets, daily range): BP systolic 116–159; BP diastolic 58–98
[2020-01-07] MEDS: HYDROcodone/acetaminophen 10/325mg tab PO PRN ×6 (00:09→23:10)
[2020-01-07] MEDS: ceFAZolin 1GM/D5W- ADD-VANTAGE 50 ML IV SCH ×3 (00:22→16:17)
[2020-01-07 02:38] LABS: BASOPHILS % (AUTO) 0.2 % (0-1); EOSINOPHILS % (AUTO) 0.1 % (0-6); HEMATOCRIT 40.4 % (42.0-52.0); HEMOGLOBIN 13.3 g/dl (14.0-17.9); LYMPHOCYTES % (AUTO) 7.2 % (21-51); MEAN CORPUSCULAR HEMOGLOBIN 30.3 PG (27.0-31.0); MEAN CORPUSCULAR VOLUME 91.9 FL (78-98); MEAN PLATELET VOLUME 8.7 FL (7.4-10.4); MONOCYTES % (AUTO) 6.9 % (2-12); NEUTROPHILS # (AUTO) 12.3 X10'3 (1.8-7.7); NEUTROPHILS % (AUTO) 85.6 % (42-75); PLATELET COUNT 137 X10'3 (140-440); RED BLOOD COUNT 4.39 X10'6 (4.70-6.10); RED CELL DISTRIBUTION WIDTH 13.7 % (11.5-14.5); WHITE BLOOD COUNT 14.4 X10'3 (4.5-11.0)
[2020-01-07 02:46] LABS: PARTIAL THROMBOPLASTIN TIME 28 SECONDS (22-32)
[2020-01-07 02:55] LABS: ALANINE AMINOTRANSFERASE 26 U/L (12-78); ALBUMIN/GLOBULIN RATIO 1.2 (1.1-1.5); ALKALINE PHOSPHATASE 81 IU/L (46-116); ANION GAP 7 (8-16); ASPARTATE AMINO TRANSFERASE 44 U/L (10-37); BILIRUBIN,TOTAL 0.2 MG/DL (0.1-1.0); BLOOD UREA NITROGEN 15 MG/DL (7-18); BUN/CREATININE RATIO 16.7 (5.4-32.0); CALCIUM 7.7 MG/DL (8.5-10.1); CHLORIDE 110 MMOL/L (99-107); GLUCOSE 130 MG/DL (70-104); MAGNESIUM 2.3 MG/DL (1.5-2.4); PHOSPHORUS 3.6 MG/DL (2.3-4.5); POTASSIUM 4.3 MMOL/L (3.5-5.1); SODIUM 141 MMOL/L (135-145); TOTAL CARBON DIOXIDE 24.5 MMOL/L (24-32); TOTAL PROTEIN 5.6 G/DL (6.4-8.2); eGFR 85 ML/MIN
[2020-01-07] MEDS: albuterol 2.5 MG/3 ML nebule NEB SCH ×4 (03:00→20:51)
[2020-01-07] MEDS: potassium Cl 20mEq/100mL bag 100 ML IV PRN (03:58)
[2020-01-07] MEDS: morphine 4 MG/ML inj SYRINge IV PRN (04:10)
--- NOTE | 2020-01-07 06:25 | NUR ---
Problems reprioritized. Patient report given, questions answered & plan of care reviewed with Meir PIKE.
[2020-01-07] MEDS ORDERED: metoprolol tartrate 12.5mg (1/2 tablet) PO SCH (08:00)
[2020-01-07] MEDS ORDERED: atorvastatin 10mg tablet PO SCH (08:00)
[2020-01-07] MEDS ORDERED: aspirin 325mg tablet, delayed-release (Ecotrin) PO SCH (08:00)
[2020-01-07] MEDS: phenytoin sod ER 100mg capsule PO SCH ×2 (08:39→19:14)
[2020-01-07] MEDS: gabapentin 300mg capsule PO SCH ×3 (08:40→21:02)
[2020-01-07] MEDS: sennosides/docusate sodium tablet PO SCH ×2 (08:40→19:15)
[2020-01-07] MEDS ORDERED: metoprolol tartrate 25mg tablet PO ONE (08:55)
[2020-01-07] MEDS: mupirocin 2% nasal ointment 1gm UD NS SCH ×2 (09:01→19:13)
[2020-01-07] MEDS: vancomycin/NS 1 GM ADD-VANTAGE 250 ML IV SCH ×2 (09:31→19:13)
[2020-01-07] MEDS: budesonide 0.5mg/2ml UD nebule IH SCH ×2 (09:32→20:51)
[2020-01-07] MEDS: Insulin Reg/NS 100units/100mL 100 ML IV SCH (14:50)
[2020-01-07] MEDS: acetaminophen 325mg tablet PO PRN (17:08)
--- NOTE | 2020-01-07 18:33 | NUR ---
Patient in room ICU 2040. I have received report from vidhi torres and had the opportunity to ask questions and assume patient care.
[2020-01-07] MEDS: metoprolol tartrate 25mg tablet PO SCH (19:14)
[2020-01-07] MEDS ORDERED: metoprolol tartrate 25mg tablet PO SCH (20:00)
[2020-01-08] VITALS (26 sets, daily range): BP systolic 109–151; BP diastolic 52–94
[2020-01-08] MEDS: ceFAZolin 1GM/D5W- ADD-VANTAGE 50 ML IV SCH (00:16)
[2020-01-08] MEDS: albuterol 2.5 MG/3 ML nebule NEB SCH ×4 (02:47→20:29)
[2020-01-08 03:24] LABS: BASOPHILS % (AUTO) 0.1 % (0-1); EOSINOPHILS % (AUTO) 0.3 % (0-6); HEMOGLOBIN 12.8 g/dl (14.0-17.9); LYMPHOCYTES # (AUTO) 1.3 X10'3 (1.1-4.8); LYMPHOCYTES % (AUTO) 9.5 % (21-51); MEAN CORPUSCULAR HEMOGLOBIN 30.4 PG (27.0-31.0); MEAN CORPUSCULAR HGB CONC 32.8 g/dL (33.0-36.5); MEAN CORPUSCULAR VOLUME 92.8 FL (78-98); MEAN PLATELET VOLUME 9.4 FL (7.4-10.4); MONOCYTES # (AUTO) 1.2 X10'3 (0-0.9); NEUTROPHILS # (AUTO) 11.2 X10'3 (1.8-7.7); NEUTROPHILS % (AUTO) 81.1 % (42-75); PLATELET COUNT 132 X10'3 (140-440); RED CELL DISTRIBUTION WIDTH 14.1 % (11.5-14.5); WHITE BLOOD COUNT 13.8 X10'3 (4.5-11.0)
[2020-01-08 04:13] LABS: ALBUMIN 2.9 G/DL (3.4-5.0); ANION GAP 7 (8-16); BLOOD UREA NITROGEN 16 MG/DL (7-18); BUN/CREATININE RATIO 17.4 (5.4-32.0); CALCIUM 7.9 MG/DL (8.5-10.1); CHLORIDE 106 MMOL/L (99-107); CREATININE 0.92 MG/DL (0.60-1.10); GLUCOSE 106 MG/DL (70-104); PHOSPHORUS 2.9 MG/DL (2.3-4.5); POTASSIUM 4.3 MMOL/L (3.5-5.1); SODIUM 139 MMOL/L (135-145); TOTAL CARBON DIOXIDE 25.7 MMOL/L (24-32); eGFR 83 ML/MIN
--- NOTE | 2020-01-08 06:30 | NUR ---
Patient in room ICU 2040. I have received report from Miguel Angel PIKE and had the opportunity to ask questions and assume patient care. Addendum: 01/08/20 at 1456 by Kourtney Mariano RN Patient in room ICU 2040. I have received report from Velma PIKE and had the opportunity to ask questions and assume patient care.
[2020-01-08] MEDS: pantoprazole 40mg Tablet.DR PO SCH (06:37)
[2020-01-08] MEDS: HYDROcodone/acetaminophen 10/325mg tab PO PRN ×4 (06:38→22:18)
[2020-01-08] MEDS: mupirocin 2% nasal ointment 1gm UD NS SCH (07:08)
[2020-01-08] MEDS: phenytoin sod ER 100mg capsule PO SCH ×2 (07:08→20:18)
[2020-01-08] MEDS: atorvastatin 20mg tablet PO SCH (07:09)
[2020-01-08] MEDS: gabapentin 300mg capsule PO SCH (07:09)
[2020-01-08] MEDS: metoprolol tartrate 25mg tablet PO SCH ×3 (07:09→20:17)
[2020-01-08] MEDS: aspirin 81mg tab.chew PO SCH (07:10)
[2020-01-08] MEDS: sennosides/docusate sodium tablet PO SCH ×2 (07:10→20:17)
[2020-01-08] MEDS: potassium Cl 20 mEq SR tablet PO PRN ×2 (07:30→20:18)
[2020-01-08] MEDS: budesonide 0.5mg/2ml UD nebule IH SCH ×2 (08:51→20:29)
[2020-01-08] MEDS: sodium chloride 0.45% 1,000 ML IV SCH (10:39)
--- NOTE | 2020-01-08 10:59 | NUR ---
Buchanan catheter removed per order pt tolerated well. Has been draining clear, yellow urine.
--- NOTE | 2020-01-08 13:40 | NUR ---
Central line discontinued per order. Patient tolerated well. No s/s of complications noted.
--- NOTE | 2020-01-08 14:33 | NUR ---
CABG ED: Patient met at bedside, joked if I had brought him a hamburger. Discussed nutrition guidelines for heart healthy diet and provided written heart healthy education handout and written high protein post cardiac surgery education handout with verbal review of both. Reports he should eat less fast food and that his cooks at home and encourages heart healthy choices. Pt verbalized understanding of all. Reports good appetite, no c/o GI issues although no BM since 01/02 and receiving bowel , no chewing/swallowing issues, no NKFA. Eating well, 75-100%. Will follow. Recommend: 1. continue no concentrated sweets 2. bowel care 3. wt per rx Addendum: 01/08/20 at [address] Amended: Links added.
[2020-01-08] MEDS ORDERED: furosemide 40mg/4ml inj IV ONE (15:05)
[2020-01-08] MEDS ORDERED: amiodarone 50MG/ML inj IV ONE (19:39)
[2020-01-08] MEDS ORDERED: amiodarone 150mg/dext, iso-os 100 ML IV ONE ×2 (19:40)
--- NOTE | 2020-01-08 19:45 | NUR ---
Pt heart rate [address] King contacted, amio gtt started and labs drawn.
[2020-01-08] MEDS: amiodarone/D5 360MG/200ML BAG 200 ML IV SCH (19:53)
[2020-01-08 19:57] LABS: BASOPHILS % (AUTO) 0.2 % (0-1); EOSINOPHILS # (AUTO) 0.1 X10'3 (0-0.9); EOSINOPHILS % (AUTO) 0.9 % (0-6); HEMOGLOBIN 12.9 g/dl (14.0-17.9); LYMPHOCYTES # (AUTO) 1.4 X10'3 (1.1-4.8); LYMPHOCYTES % (AUTO) 12.1 % (21-51); MEAN CORPUSCULAR HEMOGLOBIN 30.2 PG (27.0-31.0); MEAN CORPUSCULAR HGB CONC 33.1 g/dL (33.0-36.5); MEAN CORPUSCULAR VOLUME 91.3 FL (78-98); MEAN PLATELET VOLUME 9.1 FL (7.4-10.4); MONOCYTES # (AUTO) 0.9 X10'3 (0-0.9); MONOCYTES % (AUTO) 8.4 % (2-12); NEUTROPHILS # (AUTO) 8.8 X10'3 (1.8-7.7); NEUTROPHILS % (AUTO) 78.4 % (42-75); PLATELET COUNT 140 X10'3 (140-440); RED BLOOD COUNT 4.27 X10'6 (4.70-6.10); WHITE BLOOD COUNT 11.2 X10'3 (4.5-11.0)
[2020-01-08 20:08] LABS: ALANINE AMINOTRANSFERASE 19 U/L (12-78); ALBUMIN/GLOBULIN RATIO 0.9 (1.1-1.5); ALKALINE PHOSPHATASE 81 IU/L (46-116); ANION GAP 7 (8-16); ASPARTATE AMINO TRANSFERASE 22 U/L (10-37); BILIRUBIN,TOTAL 0.3 MG/DL (0.1-1.0); BLOOD UREA NITROGEN 16 MG/DL (7-18); BUN/CREATININE RATIO 16.3 (5.4-32.0); CHLORIDE 106 MMOL/L (99-107); CREATININE 0.98 MG/DL (0.60-1.10); GLUCOSE 149 MG/DL (70-104); MAGNESIUM 2.3 MG/DL (1.5-2.4); POTASSIUM 3.8 MMOL/L (3.5-5.1); SODIUM 139 MMOL/L (135-145); TOTAL CARBON DIOXIDE 26.3 MMOL/L (24-32); TOTAL PROTEIN 6.3 G/DL (6.4-8.2); eGFR 77 ML/MIN
[2020-01-08] MEDS: magnesium 2GM in 50ml NS 50 ML IV PRN (20:18)
[2020-01-09] VITALS (22 sets, daily range): BP systolic 101–163; BP diastolic 52–102
[2020-01-09] MEDS: Insulin Reg/NS 100units/100mL 100 ML IV SCH (00:10)
[2020-01-09] MEDS: amiodarone/D5 360MG/200ML BAG 200 ML IV SCH ×3 (01:51→20:04)
[2020-01-09] MEDS: potassium Cl 20 mEq SR tablet PO PRN ×3 (01:59→21:23)
[2020-01-09] MEDS: HYDROcodone/acetaminophen 10/325mg tab PO PRN ×4 (01:59→20:15)
[2020-01-09] MEDS: albuterol 2.5 MG/3 ML nebule NEB SCH ×4 (02:49→20:44)
--- NOTE | 2020-01-09 06:00 | NUR ---
Patient in room ICU 2040. I have received report from SHAHZAD Ryder and had the opportunity to ask questions and assume patient care.
[2020-01-09 06:13] LABS: BASOPHILS % (AUTO) 0.4 % (0-1); EOSINOPHILS # (AUTO) 0.2 X10'3 (0-0.9); EOSINOPHILS % (AUTO) 1.4 % (0-6); HEMATOCRIT 38.4 % (42.0-52.0); HEMOGLOBIN 12.7 g/dl (14.0-17.9); LYMPHOCYTES # (AUTO) 1.4 X10'3 (1.1-4.8); MEAN CORPUSCULAR HEMOGLOBIN 30.6 PG (27.0-31.0); MEAN CORPUSCULAR VOLUME 92.8 FL (78-98); MEAN PLATELET VOLUME 10.1 FL (7.4-10.4); MONOCYTES # (AUTO) 1.1 X10'3 (0-0.9); MONOCYTES % (AUTO) 9.2 % (2-12); NEUTROPHILS # (AUTO) 8.8 X10'3 (1.8-7.7); PLATELET COUNT 138 X10'3 (140-440); RED BLOOD COUNT 4.13 X10'6 (4.70-6.10); RED CELL DISTRIBUTION WIDTH 13.6 % (11.5-14.5); WHITE BLOOD COUNT 11.4 X10'3 (4.5-11.0)
[2020-01-09 07:07] LABS: ALBUMIN 2.8 G/DL (3.4-5.0); ANION GAP 9 (8-16); BLOOD UREA NITROGEN 16 MG/DL (7-18); BUN/CREATININE RATIO 19.3 (5.4-32.0); CALCIUM 8.2 MG/DL (8.5-10.1); CHLORIDE 105 MMOL/L (99-107); CREATININE 0.83 MG/DL (0.60-1.10); GLUCOSE 94 MG/DL (70-104); MAGNESIUM 2.4 MG/DL (1.5-2.4); PHOSPHORUS 2.8 MG/DL (2.3-4.5); POTASSIUM 3.9 MMOL/L (3.5-5.1); SODIUM 139 MMOL/L (135-145); TOTAL CARBON DIOXIDE 24.9 MMOL/L (24-32); eGFR > 90 ML/MIN
[2020-01-09] MEDS: pantoprazole 40mg Tablet.DR PO SCH (07:50)
[2020-01-09] MEDS: budesonide 0.5mg/2ml UD nebule IH SCH ×2 (08:21→20:44)
[2020-01-09] MEDS: aspirin 81mg tab.chew PO SCH (08:39)
[2020-01-09] MEDS: phenytoin sod ER 100mg capsule PO SCH ×2 (08:39→20:35)
[2020-01-09] MEDS: atorvastatin 20mg tablet PO SCH (08:40)
[2020-01-09] MEDS: sennosides/docusate sodium tablet PO SCH ×2 (08:40→20:37)
[2020-01-09] MEDS: metoprolol tartrate 25mg tablet PO SCH ×2 (08:41→20:34)
[2020-01-09] MEDS: magnesium 2GM in 50ml NS 50 ML IV PRN ×2 (09:18→21:24)
[2020-01-09] MEDS ORDERED: furosemide 40mg/4ml inj IV ONE (11:05)
--- NOTE | 2020-01-09 11:09 | NUR ---
Per Dr. King, D/C Amiodarone drip one hour after scheduled PO Amiodarone given this evening in order to allow overlap of medication.
[2020-01-09 19:56] LABS: ALANINE AMINOTRANSFERASE 29 U/L (12-78); ALBUMIN 2.9 G/DL (3.4-5.0); ALBUMIN/GLOBULIN RATIO 0.8 (1.1-1.5); ALKALINE PHOSPHATASE 90 IU/L (46-116); ANION GAP 5 (8-16); ASPARTATE AMINO TRANSFERASE 38 U/L (10-37); BILIRUBIN,TOTAL 0.3 MG/DL (0.1-1.0); BLOOD UREA NITROGEN 19 MG/DL (7-18); BUN/CREATININE RATIO 18.3 (5.4-32.0); CALCIUM 8.1 MG/DL (8.5-10.1); CHLORIDE 105 MMOL/L (99-107); CREATININE 1.04 MG/DL (0.60-1.10); GLUCOSE 158 MG/DL (70-104); MAGNESIUM 2.2 MG/DL (1.5-2.4); PHOSPHORUS 2.8 MG/DL (2.3-4.5); POTASSIUM 3.7 MMOL/L (3.5-5.1); SODIUM 139 MMOL/L (135-145); TOTAL CARBON DIOXIDE 28.8 MMOL/L (24-32); TOTAL PROTEIN 6.5 G/DL (6.4-8.2); eGFR 72 ML/MIN
[2020-01-09] MEDS: acetaminophen 325mg tablet PO PRN (20:15)
[2020-01-09] MEDS: amiodarone 200mg tablet PO SCH (20:15)
[2020-01-10] VITALS (9 sets, daily range): BP systolic 111–157; BP diastolic 69–98
[2020-01-10] MEDS: HYDROcodone/acetaminophen 10/325mg tab PO PRN
[2020-01-10] MEDS: albuterol 2.5 MG/3 ML nebule NEB SCH ×2 (03:04→08:01)
[2020-01-10 06:45] LABS: BASOPHILS % (AUTO) 0.4 % (0-1); EOSINOPHILS # (AUTO) 0.3 X10'3 (0-0.9); EOSINOPHILS % (AUTO) 3.7 % (0-6); HEMATOCRIT 38.2 % (42.0-52.0); HEMOGLOBIN 12.8 g/dl (14.0-17.9); LYMPHOCYTES # (AUTO) 1.4 X10'3 (1.1-4.8); LYMPHOCYTES % (AUTO) 17.8 % (21-51); MEAN CORPUSCULAR HEMOGLOBIN 30.8 PG (27.0-31.0); MEAN CORPUSCULAR HGB CONC 33.4 g/dL (33.0-36.5); MEAN CORPUSCULAR VOLUME 92.1 FL (78-98); MEAN PLATELET VOLUME 9.3 FL (7.4-10.4); MONOCYTES # (AUTO) 0.8 X10'3 (0-0.9); MONOCYTES % (AUTO) 10.8 % (2-12); NEUTROPHILS # (AUTO) 5.3 X10'3 (1.8-7.7); NEUTROPHILS % (AUTO) 67.3 % (42-75); PLATELET COUNT 177 X10'3 (140-440); RED BLOOD COUNT 4.15 X10'6 (4.70-6.10); RED CELL DISTRIBUTION WIDTH 13.7 % (11.5-14.5); WHITE BLOOD COUNT 7.8 X10'3 (4.5-11.0)
[2020-01-10] MEDS: atorvastatin 20mg tablet PO SCH (07:34)
[2020-01-10 07:35] LABS: ALBUMIN 2.7 G/DL (3.4-5.0); ANION GAP 7 (8-16); BLOOD UREA NITROGEN 17 MG/DL (7-18); BUN/CREATININE RATIO 19.8 (5.4-32.0); CALCIUM 8.4 MG/DL (8.5-10.1); CHLORIDE 106 MMOL/L (99-107); CREATININE 0.86 MG/DL (0.60-1.10); GLUCOSE 87 MG/DL (70-104); MAGNESIUM 2.5 MG/DL (1.5-2.4); PHOSPHORUS 3.2 MG/DL (2.3-4.5); POTASSIUM 3.9 MMOL/L (3.5-5.1); SODIUM 140 MMOL/L (135-145); eGFR 90 ML/MIN
[2020-01-10] MEDS: aspirin 81mg tab.chew PO SCH (07:35)
[2020-01-10] MEDS: phenytoin sod ER 100mg capsule PO SCH (07:35)
[2020-01-10] MEDS: metoprolol tartrate 25mg tablet PO SCH (07:35)
[2020-01-10] MEDS: amiodarone 200mg tablet PO SCH (07:36)
[2020-01-10] MEDS: sennosides/docusate sodium tablet PO SCH (07:36)
[2020-01-10] MEDS: pantoprazole 40mg Tablet.DR PO SCH (07:36)
[2020-01-10] MEDS: potassium Cl 20 mEq SR tablet PO PRN (07:59)
[2020-01-10] MEDS: budesonide 0.5mg/2ml UD nebule IH SCH (08:01)
--- NOTE | 2020-01-10 08:38 | NUR ---
Carlitos Reyes here to see pt. States he will discharge pt. home. Charge nurse aware.
[2020-01-10] MEDS ORDERED: AMIO200T61 PO (08:39)
[2020-01-10] MEDS ORDERED: METO25TA6 PO (08:39)
[2020-01-10] MEDS ORDERED: HYDR-4353 PO (08:39)
[2020-01-10] MEDS ORDERED: ASPI-1265 PO (08:39)
[2020-01-10] MEDS ORDERED: SENN-166 PO (08:39)
[2020-01-10] MEDS ORDERED: CLOP75TA15 PO (08:40)
--- NOTE | 2020-01-10 09:29 | NUR ---
Discarge packet printed. Pt.'s ride is coming from [place].
[2020-01-10] MEDS: Insulin Reg/NS 100units/100mL 100 ML IV SCH (09:30)
--- NOTE | 2020-01-10 10:35 | NUR ---
Pt. discharged home. Taken to front of hospital via w/c with all belongings in stable condition. to drive pt. home. Discharge instructions reviewed with pt. prior to discharge. Meds to be available at [facility] on [address] today.
[2020-01-10] MEDS: sodium chloride 0.45% 1,000 ML IV SCH (10:39)
== END 2020-01-10 10:35 | disposition home or self-care (01) | DRG 234 ==
LOC: ER 17:14 → ED HOLD 21:03 → PCU 3S 21:57 → ICU 2S 01-06 08:52
PROVIDERS: ADMIT Family Medicine; ATTEND Thoracic Surgery (Cardiothoracic Vascular Surgery)
PROC: 4A023N7 Measurement of Cardiac Sampling and Pressure, Left Heart, Percutaneous Approach (ICD-10-PCS; 2020-01-04)
PROC: B2101ZZ Fluoroscopy of Single Coronary Artery using Low Osmolar Contrast (ICD-10-PCS; 2020-01-04)
PROC: 021109W Bypass Coronary Artery, Two Arteries from Aorta with Autologous Venous Tissue, Open Approach (ICD-10-PCS; 2020-01-06)
PROC: 06BY4ZZ Excision of Lower Vein, Percutaneous Endoscopic Approach (ICD-10-PCS; 2020-01-06)
PROC: 5A1221Z Performance of Cardiac Output, Continuous (ICD-10-PCS; 2020-01-06)
PROC: B244ZZ4 Ultrasonography of Right Heart, Transesophageal (ICD-10-PCS; 2020-01-06)
PROC: 02100Z9 Bypass Coronary Artery, One Artery from Left Internal Mammary, Open Approach (ICD-10-PCS; principal; 2020-01-06 06:48)
DX: I21.4 Non-ST elevation (NSTEMI) myocardial infarction (principal); I25.110 Atherosclerotic heart disease of native coronary artery with unstable angina pectoris; E78.5 Hyperlipidemia, unspecified; J44.9 Chronic obstructive pulmonary disease, unspecified; I10 Essential (primary) hypertension; G40.909 Epilepsy, unspecified, not intractable, without status epilepticus; E87.6 Hypokalemia; I25.2 Old myocardial infarction; F17.210 Nicotine dependence, cigarettes, uncomplicated; Z80.8 Family history of malignant neoplasm of other organs or systems; I48.91 Unspecified atrial fibrillation
CPT/HCPCS: 0232T; 93306; 93312; 93325; 93458; 99285; Z7506; Z7508; 36415; 36600; 71045; 71046; 76937; 80047; 80048; 80053; 80061; 80185; 82330; 82435; 82803; 82947; 82948; 83036; 83735; 83880; 84100; 84132; 84295; 84484; 85018; 85025; 85347; 85384; 85610; 85730; 86885; 86900; 86901; 86920; 87081; 87635; 93005; 93880; 93970; 94002; 94010; 94640; 94668; 94760; 97110; 97116; 97161; 97530; 99152; 99153; A4618; A4620; A6258; A6402; A6449; A7000; A7048; C1713; C1751; C1769; C9113; G0378; J0131; J0360; J0690; J1644; J1650; J1815; J1940; J2001; J2060; J2150; J2250; J2270; J2440; J2704; J2720; J2930; J3010; J3246; J3370; J3475; J3480; J3490; J7030; J7040; J7050; J7060; J7120; J7626; P9047; Q9967

== ENCOUNTER 2020-01-20 19:10 | Observation (INO) | payer OTHER ==
[~2020-01-20] VITALS: Ht 188 cm; Wt 102.7 kg
[~2020-01-20 19:10] MED LIST changes: +ALBU6.7H9 INH; +AMIO200T61 PO; +ASPI-1265 PO; +CLOP75TA15 PO; +FLUT1BLS10; +FLUT1DIS20 INH; +HYDR-4353 PO; -LIDOcaine 2% (20 mg/ml) 5ml cardiac syringe ONE; -MAGNESIUM SULFATE 4 MEQ/ML (5gm/10ml) injection ONE; +METO25TA6 PO; +PHEN100C12 PO; +SENN-166 PO; +SIMV-42 PO; -albumin (human) 25% 100 ML IV solution IV ONE; -aminocaproic acid 250 MG/1 ML inj. ONE; -calcium chloride 100 MG/1 ML inj IV ONE; -heparin 1,000 units/ml 10ml inj ONE; -heparin 10,000 units/1 ML INJ ONE; -methylPREDNISolone sod. succ. 500mg inj ONE; -papaverine 30 mg/ml 2ml inj. ONE; -sodium bicarbonate (8.4%) 1 mEq/ml syringe ONE
[2020-01-20 19:30] LABS: BASOPHILS # (AUTO) 0.1 X10'3 (0-0.2); BASOPHILS % (AUTO) 0.7 % (0-1); EOSINOPHILS # (AUTO) 0.3 X10'3 (0-0.9); EOSINOPHILS % (AUTO) 2.2 % (0-6); HEMATOCRIT 43.4 % (42.0-52.0); HEMOGLOBIN 14.4 g/dl (14.0-17.9); LYMPHOCYTES # (AUTO) 1.2 X10'3 (1.1-4.8); LYMPHOCYTES % (AUTO) 8.7 % (21-51); MEAN CORPUSCULAR HEMOGLOBIN 29.9 PG (27.0-31.0); MEAN CORPUSCULAR HGB CONC 33.1 g/dL (33.0-36.5); MEAN CORPUSCULAR VOLUME 90.3 FL (78-98); MEAN PLATELET VOLUME 7.8 FL (7.4-10.4); MONOCYTES # (AUTO) 0.6 X10'3 (0-0.9); NEUTROPHILS # (AUTO) 11.9 X10'3 (1.8-7.7); NEUTROPHILS % (AUTO) 84.4 % (42-75); PLATELET COUNT 398 X10'3 (140-440); RED BLOOD COUNT 4.81 X10'6 (4.70-6.10); RED CELL DISTRIBUTION WIDTH 13.5 % (11.5-14.5); WHITE BLOOD COUNT 14.1 X10'3 (4.5-11.0)
[2020-01-20] MEDS ORDERED: HYDROmorphone 1 mg/ml syringe IV ONE (19:30)
[2020-01-20] MEDS ORDERED: fentaNYL/PF 50MCG/1 ML 2ML syringe IV ONE (19:40)
[2020-01-20 19:45] LABS: ALANINE AMINOTRANSFERASE 16 U/L (12-78); ALBUMIN 3.4 G/DL (3.4-5.0); ALBUMIN/GLOBULIN RATIO 0.9 (1.1-1.5); ALKALINE PHOSPHATASE 138 IU/L (46-116); ANION GAP 9 (8-16); ASPARTATE AMINO TRANSFERASE 14 U/L (10-37); BILIRUBIN,TOTAL 0.2 MG/DL (0.1-1.0); BLOOD UREA NITROGEN 12 MG/DL (7-18); BUN/CREATININE RATIO 12.6 (5.4-32.0); CALCIUM 8.7 MG/DL (8.5-10.1); CHLORIDE 107 MMOL/L (99-107); CREATININE 0.95 MG/DL (0.60-1.10); GLUCOSE 128 MG/DL (70-104); POTASSIUM 3.6 MMOL/L (3.5-5.1); SODIUM 143 MMOL/L (135-145); TOTAL CARBON DIOXIDE 26.6 MMOL/L (24-32); TOTAL PROTEIN 7.1 G/DL (6.4-8.2); eGFR 80 ML/MIN
[2020-01-20 20:05] LABS: MAGNESIUM 2.2 MG/DL (1.5-2.4)
[2020-01-20] MEDS ORDERED: morphine 10mg/ml inj. IV ONE (21:35)
[2020-01-20] MEDS ORDERED: ondansetron/PF 4mg/2ml inj IV PRN (22:15)
[2020-01-20] MEDS ORDERED: mag hydrox/Alum hydrox/simeth 30ml oral suspension PO PRN (22:15)
[2020-01-20] MEDS ORDERED: potassium CL 10mEq/100ml bag 100 ML IV PRN ×2 (22:15)
[2020-01-20] MEDS ORDERED: magnesium Cl slow-release 64mg tablet PO PRN (22:15)
[2020-01-20] MEDS ORDERED: magnesium 2GM in 50ml NS 50 ML IV PRN (22:15)
[2020-01-20] MEDS ORDERED: magnesium hydroxide 30ml (MOM) UD suspension PO PRN (22:15)
[2020-01-20] MEDS ORDERED: magnesium 4gm in 100ml NS 100 ML IV PRN (22:15)
[2020-01-20] MEDS ORDERED: potassium Cl 20 mEq SR tablet PO PRN ×2 (22:15)
[2020-01-20] MEDS ORDERED: morphine 2 MG/ML inj. syringe IV PRN (22:15)
[2020-01-20] MEDS ORDERED: acetaminophen 325mg tablet PO PRN (22:15)
[2020-01-20] MEDS ORDERED: hydrALAZINE 20mg/ml inj. IV PRN (22:20)
[2020-01-20 22:46] LABS: PARTIAL THROMBOPLASTIN TIME 35 SECONDS (22-32)
--- NOTE | 2020-01-20 23:14 | NUR ---
Patient in room ED 4. I have received report from Preethi PIKE and had the opportunity to ask questions and assume patient care.
[2020-01-20 23:25] VITALS: BP 170/98
[2020-01-21] MEDS: HYDROcodone/acetaminophen 5mg/325mg tablet PO PRN ×2 (01:39→07:55)
[2020-01-21 01:47] LABS: BASOPHILS # (AUTO) 0.1 X10'3 (0-0.2); BASOPHILS % (AUTO) 0.5 % (0-1); EOSINOPHILS # (AUTO) 0.3 X10'3 (0-0.9); EOSINOPHILS % (AUTO) 1.6 % (0-6); HEMATOCRIT 45.5 % (42.0-52.0); LYMPHOCYTES # (AUTO) 1.2 X10'3 (1.1-4.8); LYMPHOCYTES % (AUTO) 7.3 % (21-51); MEAN CORPUSCULAR HEMOGLOBIN 30.1 PG (27.0-31.0); MEAN CORPUSCULAR VOLUME 91.3 FL (78-98); MEAN PLATELET VOLUME 7.9 FL (7.4-10.4); MONOCYTES # (AUTO) 0.6 X10'3 (0-0.9); NEUTROPHILS # (AUTO) 14.1 X10'3 (1.8-7.7); NEUTROPHILS % (AUTO) 86.6 % (42-75); PLATELET COUNT 338 X10'3 (140-440); RED BLOOD COUNT 4.98 X10'6 (4.70-6.10); RED CELL DISTRIBUTION WIDTH 13.5 % (11.5-14.5); WHITE BLOOD COUNT 16.3 X10'3 (4.5-11.0)
[2020-01-21 01:52] LABS: ALANINE AMINOTRANSFERASE 16 U/L (12-78); ALBUMIN 3.4 G/DL (3.4-5.0); ALBUMIN/GLOBULIN RATIO 0.9 (1.1-1.5); ALKALINE PHOSPHATASE 147 IU/L (46-116); ANION GAP 9 (8-16); ASPARTATE AMINO TRANSFERASE 13 U/L (10-37); BILIRUBIN,TOTAL 0.3 MG/DL (0.1-1.0); BLOOD UREA NITROGEN 10 MG/DL (7-18); BUN/CREATININE RATIO 11.2 (5.4-32.0); CALCIUM 8.8 MG/DL (8.5-10.1); CHLORIDE 106 MMOL/L (99-107); CREATININE 0.89 MG/DL (0.60-1.10); GLUCOSE 122 MG/DL (70-104); POTASSIUM 3.4 MMOL/L (3.5-5.1); SODIUM 141 MMOL/L (135-145); TOTAL CARBON DIOXIDE 25.8 MMOL/L (24-32); TOTAL PROTEIN 7.1 G/DL (6.4-8.2); eGFR 86 ML/MIN
[2020-01-21 01:56] LABS: MAGNESIUM 2.1 MG/DL (1.5-2.4); PHOSPHORUS 3.6 MG/DL (2.3-4.5)
[2020-01-21 02:00] VITALS: BP 160/84
[2020-01-21] MEDS: albuterol 2.5 MG/3 ML nebule NEB SCH ×2 (03:17→09:21)
[2020-01-21 06:00] VITALS: BP 163/95
--- NOTE | 2020-01-21 06:00 | NUR ---
Patient in room PCU 3027. I have received report from Janae PIKE and had the opportunity to ask questions and assume patient care.
--- NOTE | 2020-01-21 06:22 | NUR ---
Problems reprioritized. Patient report given, questions answered & plan of care reviewed with Bessie PIKE.
[2020-01-21 07:56] VITALS: BP_SYST 163
[2020-01-21] MEDS ORDERED: K and/or MAG REPLACEMENT MC SCH (08:00)
[2020-01-21] MEDS ORDERED: aspirin 81mg tab.chew PO SCH (08:00)
[2020-01-21] MEDS ORDERED: metoprolol tartrate 25mg tablet PO SCH (08:00)
[2020-01-21] MEDS ORDERED: non-formulary drug (Fluticasone/Salmeterol (Advair 250-50 Diskus) 1 PUFFS) INH SCH (08:00)
[2020-01-21] MEDS ORDERED: amiodarone 200mg tablet PO SCH (08:00)
[2020-01-21] MEDS ORDERED: clopidogrel 75mg tablet PO SCH (08:00)
[2020-01-21] MEDS ORDERED: sennosides/docusate sodium tablet PO SCH (08:00)
[2020-01-21] MEDS ORDERED: fluticasone nasal spray 16GM bottle NS SCH (08:00)
[2020-01-21] MEDS ORDERED: phenytoin sod ER 100mg capsule PO SCH (08:00)
[2020-01-21] MEDS ORDERED: budesonide 0.5mg/2ml UD nebule IH SCH (09:00)
[2020-01-21] MEDS ORDERED: LEVO750T21 PO (10:26)
--- NOTE | 2020-01-21 12:22 | NUR ---
Patient is stable for discharge per md orders, discharge instructions reviewed w/ pt and all questions answered, tele monitor removed and returned, piv dc'ed and clean dry dressing in place, patient discharges to home @ 1230, wheeled down to [facility] staff to private vehicle with , all belongings with pt at time of discharge.
[2020-01-21] MEDS ORDERED: atorvastatin 10mg tablet PO SCH (21:00)
== END 2020-01-21 12:35 | disposition home or self-care (01) ==
LOC: ER 19:10 → ED HOLD 22:12 → PCU 3S 22:50
PROVIDERS: ADMIT Family Medicine; ATTEND Internal Medicine
DX: R07.89 Other chest pain (principal); I25.10 Atherosclerotic heart disease of native coronary artery without angina pectoris; R94.31 Abnormal electrocardiogram [ECG] [EKG]; I10 Essential (primary) hypertension; E78.5 Hyperlipidemia, unspecified; I48.0 Paroxysmal atrial fibrillation; F17.210 Nicotine dependence, cigarettes, uncomplicated; Z95.1 Presence of aortocoronary bypass graft; Z79.02 Long term (current) use of antithrombotics/antiplatelets; Z79.82 Long term (current) use of aspirin; Z79.899 Other long term (current) drug therapy
CPT/HCPCS: 36415; 71045; 71250; 80053; 83735; 83880; 84100; 84484; 85025; 85610; 85730; 87081; 93005; 94640; 94760; 96374; 96375; 99285; G0378; J1170; J2270; J3010; J7626

== ENCOUNTER 2021-10-04 12:33 | Inpatient (IN) | payer MEDICARE, OTHER ==
[~2021-10-04] VITALS: Ht 190.5 cm; Wt 101.4 kg
[2021-10-04] VITALS (8 sets, daily range): BP systolic 91–156; BP diastolic 45–89
[~2021-10-04 12:33] MED LIST changes: -AMIO200T61 PO; +LOP25T PO; -METO25TA6 PO
[2021-10-04] MEDS ORDERED: potassium Cl 40MEQ/1/2NS 520ml 520 ML IV PRN (12:45)
[2021-10-04] MEDS ORDERED: potassium Cl 20 mEq SR tablet PO PRN (12:45)
[2021-10-04] MEDS ORDERED: magnesium 2GM in 50ml NS 50 ML IV PRN (12:45)
[2021-10-04] MEDS ORDERED: diphenhydrAMINE 25mg capsule PO PRN (12:45)
[2021-10-04] MEDS ORDERED: ondansetron 4mg rapidly disintigrating tab PO PRN (12:45)
[2021-10-04] MEDS ORDERED: potassium CL 10mEq/100ml bag 100 ML IV PRN (12:45)
[2021-10-04] MEDS ORDERED: potassium Cl 20mEq/100mL bag 100 ML IV PRN (12:45)
[2021-10-04] MEDS ORDERED: potassium Cl 40MEQ/250ML bag 250 ML IV PRN (12:45)
[2021-10-04] MEDS ORDERED: magnesium 4gm in 100ml NS 100 ML IV PRN (12:45)
[2021-10-04] MEDS ORDERED: albuterol 2.5 MG/3 ML nebule NEB PRN (13:15)
[2021-10-04 15:19] LABS: APTT 28 SECONDS (22-32)
[2021-10-04 15:29] LABS: ALBUMIN 3.4 G/DL (3.4-5.0); ANION GAP 8 (8-16); BLOOD UREA NITROGEN 18 MG/DL (7-18); BUN/CREATININE RATIO 22.8 (5.4-32.0); CALCIUM 8.9 MG/DL (8.5-10.1); CHLORIDE 104 MMOL/L (99-107); CREATININE 0.79 MG/DL (0.60-1.10); GLUCOSE 89 MG/DL (70-104); MAGNESIUM 2.1 MG/DL (1.5-2.4); PHENYTOIN (DILANTIN) 5.3 UG/ML (10.0-20.0); POTASSIUM 3.5 MMOL/L (3.5-5.1); SODIUM 141 MMOL/L (135-145); TOTAL CARBON DIOXIDE 29.1 MMOL/L (24-32); eGFR > 90 ML/MIN
[2021-10-04] MEDS: albuterol 2.5 MG/3 ML nebule NEB SCH ×2 (16:01→20:53)
[2021-10-04] MEDS ORDERED: SPIR25TA5 PO (16:55)
[2021-10-04] MEDS ORDERED: ROSU20TA31 PO (16:55)
[2021-10-04] MEDS ORDERED: CHLO25TA10 PO (16:55)
[2021-10-04] MEDS ORDERED: LOSA100T57 PO (16:55)
[2021-10-04] MEDS ORDERED: METO-384 PO (16:55)
[2021-10-04] MEDS ORDERED: ASPI-611 PO (17:00)
--- NOTE | 2021-10-04 18:30 | NUR ---
Patient in room MED 311. I have received report from SHAHZAD RABAGO and had the opportunity to ask questions and assume patient care. Addendum: 10/05/21 at 0226 by Vinita Sena RN Amended: Links added.
[2021-10-04] MEDS: budesonide 0.5mg/2ml UD nebule IH SCH (20:53)
[2021-10-04] MEDS: phenytoin sod ER 100mg capsule PO SCH (21:05)
--- NOTE | 2021-10-04 21:34 | NUR ---
PT IS SITTING UP TALKING ON PHONE MOVING AROUND WHILE B/P TAKEN. WILL RETAKE WHEN BACK IN BED FOR MORE ACCURATE B/P Addendum: 10/04/21 at 2134 by Vinita Sena RN Amended: Links added.
--- NOTE | 2021-10-04 21:52 | NUR ---
PT IS LYING ON SIDE NO COMPLAINTS ASSYMPTOMATIC. B/P ARM IS UP IN AIR. MAO 60 Addendum: 10/04/21 at 2153 by Vinita Sena RN Amended: Links added.
[2021-10-04 21:59] LABS: BASOPHILS % (AUTO) 0.6 % (0-1); EOSINOPHILS # (AUTO) 0.2 X10'3 (0-0.9); EOSINOPHILS % (AUTO) 3.1 % (0-6); HEMATOCRIT 40.7 % (42.0-52.0); HEMOGLOBIN 13.7 g/dl (14.0-17.9); LYMPHOCYTES # (AUTO) 1.9 X10'3 (1.1-4.8); LYMPHOCYTES % (AUTO) 27.3 % (21-51); MEAN CORPUSCULAR HEMOGLOBIN 30.1 PG (27.0-31.0); MEAN CORPUSCULAR HGB CONC 33.8 g/dL (33.0-36.5); MEAN CORPUSCULAR VOLUME 89.1 FL (78-98); MEAN PLATELET VOLUME 7.6 FL (7.4-10.4); MONOCYTES # (AUTO) 0.5 X10'3 (0-0.9); MONOCYTES % (AUTO) 6.9 % (2-12); NEUTROPHILS # (AUTO) 4.4 X10'3 (1.8-7.7); NEUTROPHILS % (AUTO) 62.1 % (42-75); PLATELET COUNT 274 X10'3 (140-440); RED BLOOD COUNT 4.57 X10'6 (4.70-6.10); RED CELL DISTRIBUTION WIDTH 13.6 % (11.5-14.5); WHITE BLOOD COUNT 7.1 X10'3 (4.5-11.0)
[2021-10-05] VITALS (7 sets, daily range): BP systolic 103–129; BP diastolic 46–80
--- NOTE | 2021-10-05 06:31 | NUR ---
Problems reprioritized. Patient report given, questions answered & plan of care reviewed with SHAHZAD Skaggs. Addendum: 10/05/21 at 0631 by Vinita Sena RN Amended: Links added.
[2021-10-05] MEDS: albuterol 2.5 MG/3 ML nebule NEB SCH ×4 (07:00→20:15)
[2021-10-05] MEDS: aspirin 81mg, enteric-coated 1 TAB TABLET.DR PO SCH (07:36)
[2021-10-05] MEDS: losartan 25mg tablet PO SCH (07:36)
[2021-10-05] MEDS: metoprolol succinate 25mg (24-HOUR) SR. Tablet PO SCH (07:37)
[2021-10-05] MEDS: spironolactone 25 MG tablet PO SCH (07:37)
[2021-10-05] MEDS: atorvastatin 20mg tablet PO SCH (07:37)
[2021-10-05] MEDS: phenytoin sod ER 100mg capsule PO SCH ×2 (07:37→19:45)
[2021-10-05] MEDS: chlorthalidone 25mg tablet PO SCH (07:39)
[2021-10-05 07:41] LABS: BASOPHILS # (AUTO) 0.1 X10'3 (0-0.2); EOSINOPHILS # (AUTO) 0.2 X10'3 (0-0.9); EOSINOPHILS % (AUTO) 3.1 % (0-6); HEMATOCRIT 40.5 % (42.0-52.0); HEMOGLOBIN 13.6 g/dl (14.0-17.9); LYMPHOCYTES # (AUTO) 1.5 X10'3 (1.1-4.8); LYMPHOCYTES % (AUTO) 23.6 % (21-51); MEAN CORPUSCULAR HEMOGLOBIN 29.9 PG (27.0-31.0); MEAN CORPUSCULAR HGB CONC 33.6 g/dL (33.0-36.5); MEAN CORPUSCULAR VOLUME 88.8 FL (78-98); MEAN PLATELET VOLUME 7.9 FL (7.4-10.4); MONOCYTES # (AUTO) 0.4 X10'3 (0-0.9); MONOCYTES % (AUTO) 6.6 % (2-12); NEUTROPHILS # (AUTO) 4.1 X10'3 (1.8-7.7); NEUTROPHILS % (AUTO) 65.7 % (42-75); PLATELET COUNT 253 X10'3 (140-440); RED BLOOD COUNT 4.56 X10'6 (4.70-6.10); RED CELL DISTRIBUTION WIDTH 13.4 % (11.5-14.5); WHITE BLOOD COUNT 6.2 X10'3 (4.5-11.0)
[2021-10-05 08:21] LABS: ALBUMIN 3.2 G/DL (3.4-5.0); ANION GAP 7 (8-16); BLOOD UREA NITROGEN 13 MG/DL (7-18); BUN/CREATININE RATIO 16.3 (5.4-32.0); CALCIUM 8.6 MG/DL (8.5-10.1); CHLORIDE 107 MMOL/L (99-107); GLUCOSE 86 MG/DL (70-104); MAGNESIUM 2.1 MG/DL (1.5-2.4); POTASSIUM 4.2 MMOL/L (3.5-5.1); SODIUM 143 MMOL/L (135-145); TOTAL CARBON DIOXIDE 29.2 MMOL/L (24-32); eGFR > 90 ML/MIN
[2021-10-05] MEDS: budesonide 0.5mg/2ml UD nebule IH SCH ×2 (10:15→20:16)
[2021-10-05] MEDS: nicotine 14mg patch - 24hr TD SCH (14:43)
[2021-10-05] MEDS: HYDROcodone/acetaminophen 5mg/325mg tablet PO PRN (19:46)
[2021-10-06] VITALS (21 sets, daily range): BP systolic 94–142; BP diastolic 42–84
[2021-10-06 06:06] LABS: BASOPHILS % (AUTO) 0.4 % (0-1); EOSINOPHILS # (AUTO) 0.2 X10'3 (0-0.9); EOSINOPHILS % (AUTO) 2.9 % (0-6); HEMATOCRIT 40.8 % (42.0-52.0); HEMOGLOBIN 13.7 g/dl (14.0-17.9); LYMPHOCYTES # (AUTO) 1.3 X10'3 (1.1-4.8); LYMPHOCYTES % (AUTO) 18.4 % (21-51); MEAN CORPUSCULAR HEMOGLOBIN 29.7 PG (27.0-31.0); MEAN CORPUSCULAR HGB CONC 33.5 g/dL (33.0-36.5); MEAN CORPUSCULAR VOLUME 88.7 FL (78-98); MEAN PLATELET VOLUME 8.1 FL (7.4-10.4); MONOCYTES # (AUTO) 0.5 X10'3 (0-0.9); NEUTROPHILS # (AUTO) 4.9 X10'3 (1.8-7.7); NEUTROPHILS % (AUTO) 71.3 % (42-75); PLATELET COUNT 243 X10'3 (140-440); RED CELL DISTRIBUTION WIDTH 13.6 % (11.5-14.5); WHITE BLOOD COUNT 6.8 X10'3 (4.5-11.0)
[2021-10-06 06:13] LABS: ALBUMIN 3.2 G/DL (3.4-5.0); ANION GAP 9 (8-16); BLOOD UREA NITROGEN 14 MG/DL (7-18); BUN/CREATININE RATIO 16.7 (5.4-32.0); CALCIUM 8.2 MG/DL (8.5-10.1); CHLORIDE 105 MMOL/L (99-107); CREATININE 0.84 MG/DL (0.60-1.10); GLUCOSE 92 MG/DL (70-104); POTASSIUM 3.9 MMOL/L (3.5-5.1); SODIUM 141 MMOL/L (135-145); TOTAL CARBON DIOXIDE 26.6 MMOL/L (24-32); eGFR > 90 ML/MIN
[2021-10-06] MEDS: albuterol 2.5 MG/3 ML nebule NEB SCH ×4 (08:08→19:00)
[2021-10-06] MEDS: budesonide 0.5mg/2ml UD nebule IH SCH ×2 (08:08→20:37)
[2021-10-06] MEDS: atorvastatin 20mg tablet PO SCH (08:43)
[2021-10-06] MEDS: aspirin 81mg, enteric-coated 1 TAB TABLET.DR PO SCH (08:43)
[2021-10-06] MEDS: phenytoin sod ER 100mg capsule PO SCH ×2 (08:44→20:52)
[2021-10-06] MEDS: chlorthalidone 25mg tablet PO SCH (08:46)
[2021-10-06] MEDS: metoprolol succinate 25mg (24-HOUR) SR. Tablet PO SCH (08:47)
[2021-10-06] MEDS: nicotine 14mg patch - 24hr TD SCH (08:48)
[2021-10-06] MEDS: spironolactone 25 MG tablet PO SCH (08:49)
[2021-10-06] MEDS: HYDROcodone/acetaminophen 5mg/325mg tablet PO PRN (10:07)
[2021-10-06] MEDS: losartan 25mg tablet PO SCH (10:07)
[2021-10-06] MEDS ORDERED: LIDOCAINE 4% (40MG/ML) topical solution 50ml **BRONCH ONLY ONE (10:55)
[2021-10-06] MEDS ORDERED: lidocaine 2% viscous 15 ML cup ***bronch room only MM ONE (10:55)
[2021-10-06] MEDS ORDERED: phenylephrine 1% Nasal spray (extra-strength) 15 ML bottle **bronch room NS ONE (10:55)
[2021-10-06] MEDS ORDERED: epiNEPHrine 1 MG/ML 1 ml ampule **BRONCH ONLY ONE (10:55)
--- NOTE | 2021-10-06 11:39 | NUR ---
Left message with Dr Gibson [phone]: left message re: patient ate this AM. Still a go? pending call back.
--- NOTE | 2021-10-06 11:43 | NUR ---
Pr MD Gibson - he still wants to perform bronchoscopy. Please transfer to ICU
--- NOTE | 2021-10-06 12:15 | NUR ---
Pt transported down to ICU for upcoming bronchoscopy. Report given to SHAHZAD Callejas. Pt brought his cell phone and flannel pants. All other personal belongings were left in his room 311. Pt was hooked up to bedside monitor - NSR. VS were all WNL. Pt stable and call light in hand.
[2021-10-06] MEDS ORDERED: fentaNYL/PF 50MCG/1 ML 2ML syringe IV ONE (14:25)
[2021-10-06] MEDS ORDERED: MIDAZolam 1mg/ml 10ml vial IV ONE (14:25)
[2021-10-06] MEDS ORDERED: midazolam 1 mg/ML 2ml injection ONE (14:46)
[2021-10-06] MEDS ORDERED: LIDOcaine 4% (40 mg/ml) topical solution 50ml INH ONE (15:05)
[2021-10-06] MEDS ORDERED: LIDOcaine Viscous 15ml cup MM ONE (15:05)
--- NOTE | 2021-10-06 16:35 | NUR ---
Patient tolerated bronchoscopy well with stable vital signs. Received 4mg Versed and 100mcg of Fentanyl. Gag returned after 1h and tolerated ice chips/small sips of water. Patient stable for transfer back to [facility]E unit. Report called to Gaby with all questions answered.
--- NOTE | 2021-10-06 16:40 | NUR ---
Pt received back on unit. Hooked up to monitoring and all VS WNL and in NSR. Pt is sitting up at the edge of the bed sipping coffee. Monitoring
[2021-10-07] VITALS (7 sets, daily range): BP systolic 102–127; BP diastolic 52–72
[2021-10-07 06:29] LABS: ALBUMIN 3.5 G/DL (3.4-5.0); ANION GAP 10 (8-16); BLOOD UREA NITROGEN 15 MG/DL (7-18); BUN/CREATININE RATIO 17.6 (5.4-32.0); CALCIUM 8.8 MG/DL (8.5-10.1); CHLORIDE 103 MMOL/L (99-107); CREATININE 0.85 MG/DL (0.60-1.10); GLUCOSE 89 MG/DL (70-104); POTASSIUM 4.3 MMOL/L (3.5-5.1); SODIUM 141 MMOL/L (135-145); TOTAL CARBON DIOXIDE 28.2 MMOL/L (24-32); eGFR 90 ML/MIN
--- NOTE | 2021-10-07 06:41 | NUR ---
report given to oncoming nurse SHAHZAD Griffin. Plan of care, questions and concerns answered.
[2021-10-07] MEDS: albuterol 2.5 MG/3 ML nebule NEB SCH ×4 (07:27→19:47)
[2021-10-07] MEDS: budesonide 0.5mg/2ml UD nebule IH SCH ×2 (07:27→19:46)
[2021-10-07] MEDS: aspirin 81mg, enteric-coated 1 TAB TABLET.DR PO SCH (08:25)
[2021-10-07] MEDS: losartan 25mg tablet PO SCH (08:25)
[2021-10-07] MEDS: metoprolol succinate 25mg (24-HOUR) SR. Tablet PO SCH (08:26)
[2021-10-07] MEDS: chlorthalidone 25mg tablet PO SCH (08:28)
[2021-10-07] MEDS: phenytoin sod ER 100mg capsule PO SCH ×2 (08:29→19:27)
[2021-10-07] MEDS: atorvastatin 20mg tablet PO SCH (08:29)
[2021-10-07] MEDS: nicotine 21mg patch - 24 hr TD SCH (08:33)
[2021-10-07] MEDS: spironolactone 25 MG tablet PO SCH (10:00)
[2021-10-07 13:18] LABS: BASOPHILS % (AUTO) 0.6 % (0-1); EOSINOPHILS # (AUTO) 0.3 X10'3 (0-0.9); EOSINOPHILS % (AUTO) 4.3 % (0-6); HEMATOCRIT 41.8 % (42.0-52.0); HEMOGLOBIN 14.1 g/dl (14.0-17.9); LYMPHOCYTES # (AUTO) 1.4 X10'3 (1.1-4.8); LYMPHOCYTES % (AUTO) 20.4 % (21-51); MEAN CORPUSCULAR HEMOGLOBIN 30.1 PG (27.0-31.0); MEAN CORPUSCULAR HGB CONC 33.7 g/dL (33.0-36.5); MEAN CORPUSCULAR VOLUME 89.4 FL (78-98); MEAN PLATELET VOLUME 8.5 FL (7.4-10.4); MONOCYTES # (AUTO) 0.5 X10'3 (0-0.9); MONOCYTES % (AUTO) 7.8 % (2-12); NEUTROPHILS # (AUTO) 4.6 X10'3 (1.8-7.7); NEUTROPHILS % (AUTO) 66.9 % (42-75); PLATELET COUNT 250 X10'3 (140-440); RED BLOOD COUNT 4.68 X10'6 (4.70-6.10); RED CELL DISTRIBUTION WIDTH 13.5 % (11.5-14.5)
[2021-10-08 02:18] VITALS: BP 126/76
--- NOTE | 2021-10-08 02:50 | NUR ---
Report received from Callie 10/07/21 at 1825 and informed that the patient is awaiting a bed transfer to [facility]. [facility] called at 0000 an informed about the patient. [facility] is requesting a negative COVID test before patient is transferred to their facility and they are still awaitingf an open bed which could take a few days. Will inform the doctor about the need for the test and will pass on in report to oncoming nurse.
--- NOTE | 2021-10-08 06:29 | NUR ---
Report given to Geetha, updates about the patients condition.
[2021-10-08 07:00] VITALS: BP 126/69
[2021-10-08 07:53] LABS: ALBUMIN 3.5 G/DL (3.4-5.0); ANION GAP 13 (8-16); BLOOD UREA NITROGEN 15 MG/DL (7-18); BUN/CREATININE RATIO 16.7 (5.4-32.0); CALCIUM 8.7 MG/DL (8.5-10.1); CHLORIDE 103 MMOL/L (99-107); GLUCOSE 125 MG/DL (70-104); MAGNESIUM 2.2 MG/DL (1.5-2.4); SODIUM 142 MMOL/L (135-145); eGFR 85 ML/MIN
[2021-10-08] MEDS: budesonide 0.5mg/2ml UD nebule IH SCH ×2 (08:04→19:19)
[2021-10-08] MEDS: albuterol 2.5 MG/3 ML nebule NEB SCH ×4 (08:05→19:20)
[2021-10-08] MEDS: nicotine 21mg patch - 24 hr TD SCH (08:10)
[2021-10-08] MEDS: phenytoin sod ER 100mg capsule PO SCH ×2 (08:10→19:28)
[2021-10-08] MEDS: aspirin 81mg, enteric-coated 1 TAB TABLET.DR PO SCH (08:11)
[2021-10-08] MEDS: spironolactone 25 MG tablet PO SCH (08:11)
[2021-10-08] MEDS: chlorthalidone 25mg tablet PO SCH (08:11)
[2021-10-08] MEDS: losartan 25mg tablet PO SCH (08:11)
[2021-10-08] MEDS: metoprolol succinate 25mg (24-HOUR) SR. Tablet PO SCH (08:12)
[2021-10-08] MEDS: atorvastatin 20mg tablet PO SCH (08:12)
[2021-10-08] MEDS: HYDROcodone/acetaminophen 5mg/325mg tablet PO PRN (08:12)
[2021-10-08 11:00] VITALS: BP 128/77
[2021-10-08 12:41] LABS: BASOPHILS % (AUTO) 0.3 % (0-1); EOSINOPHILS # (AUTO) 0.3 X10'3 (0-0.9); EOSINOPHILS % (AUTO) 3.5 % (0-6); HEMATOCRIT 42.9 % (42.0-52.0); HEMOGLOBIN 14.3 g/dl (14.0-17.9); LYMPHOCYTES # (AUTO) 1.1 X10'3 (1.1-4.8); LYMPHOCYTES % (AUTO) 14.7 % (21-51); MEAN CORPUSCULAR HEMOGLOBIN 29.9 PG (27.0-31.0); MEAN CORPUSCULAR HGB CONC 33.2 g/dL (33.0-36.5); MEAN CORPUSCULAR VOLUME 90.1 FL (78-98); MEAN PLATELET VOLUME 8.7 FL (7.4-10.4); MONOCYTES # (AUTO) 0.5 X10'3 (0-0.9); NEUTROPHILS # (AUTO) 5.8 X10'3 (1.8-7.7); NEUTROPHILS % (AUTO) 74.5 % (42-75); PLATELET COUNT 245 X10'3 (140-440); RED BLOOD COUNT 4.76 X10'6 (4.70-6.10); RED CELL DISTRIBUTION WIDTH 13.7 % (11.5-14.5); WHITE BLOOD COUNT 7.8 X10'3 (4.5-11.0)
[2021-10-08 19:00] VITALS: BP 110/64
[2021-10-08 23:00] VITALS: BP 115/64
[2021-10-09 02:00] VITALS: BP 111/66
[2021-10-09 05:50] LABS: IMMUNOGLOBULIN G, QN, SERUM 877 mg/dL (603-1613)
[2021-10-09 06:00] VITALS: BP 109/49
--- NOTE | 2021-10-09 06:23 | NUR ---
Problems reprioritized. Patient report given to Lakshmi PIKE, questions answered & plan of care reviewed with .
[2021-10-09] MEDS: albuterol 2.5 MG/3 ML nebule NEB SCH ×3 (07:58→16:01)
[2021-10-09] MEDS: budesonide 0.5mg/2ml UD nebule IH SCH (07:58)
[2021-10-09] MEDS: nicotine 21mg patch - 24 hr TD SCH (08:18)
[2021-10-09] MEDS: aspirin 81mg, enteric-coated 1 TAB TABLET.DR PO SCH (08:18)
[2021-10-09] MEDS: phenytoin sod ER 100mg capsule PO SCH (08:18)
[2021-10-09] MEDS: atorvastatin 20mg tablet PO SCH (08:18)
[2021-10-09] MEDS: chlorthalidone 25mg tablet PO SCH (08:19)
[2021-10-09] MEDS: spironolactone 25 MG tablet PO SCH (08:19)
[2021-10-09] MEDS: losartan 25mg tablet PO SCH (08:19)
[2021-10-09] MEDS: metoprolol succinate 25mg (24-HOUR) SR. Tablet PO SCH (08:19)
--- NOTE | 2021-10-09 09:25 | NUR ---
Initial: Pt admit dx thoracic aneurysm and possible aspergillosis per EMR. Pt PO intake ~73% of heart healthy meals, meeting ~60% of estimated energy needs and ~100% of estimated protein needs. Pt would benefit from smoothies TIDWM to help meet kcal needs, dietary notified. LBM 10/08, w/ no bowel care per rx. Will continue to monitor. Recommendations: 1. Continue heart healthy diet as tolerated 2. Smoothies TIDWM 3. Encourage PO intake 4. Routine bowel care 5. Weekly wt Addendum: 10/09/21 at [address] Amended: Links added. Addendum: 10/09/21 at [address] I have reviewed assessment by internal controls consultant
[2021-10-09 10:00] VITALS: BP 112/73
--- NOTE | 2021-10-09 12:00 | NUR ---
jannettees she is going to a snack for Mr Barbour. HHowever, She returned with IN and OUT Toney for him of which he ate 100%
[2021-10-09 12:54] LABS: BASOPHILS % (AUTO) 0.5 % (0-1); EOSINOPHILS # (AUTO) 0.5 X10'3 (0-0.9); EOSINOPHILS % (AUTO) 6.4 % (0-6); HEMATOCRIT 43.8 % (42.0-52.0); HEMOGLOBIN 14.7 g/dl (14.0-17.9); LYMPHOCYTES # (AUTO) 1.6 X10'3 (1.1-4.8); LYMPHOCYTES % (AUTO) 20.4 % (21-51); MEAN CORPUSCULAR HEMOGLOBIN 30.1 PG (27.0-31.0); MEAN CORPUSCULAR HGB CONC 33.5 g/dL (33.0-36.5); MEAN CORPUSCULAR VOLUME 89.7 FL (78-98); MEAN PLATELET VOLUME 8.6 FL (7.4-10.4); MONOCYTES # (AUTO) 0.6 X10'3 (0-0.9); NEUTROPHILS % (AUTO) 64.7 % (42-75); PLATELET COUNT 244 X10'3 (140-440); RED BLOOD COUNT 4.88 X10'6 (4.70-6.10); RED CELL DISTRIBUTION WIDTH 13.4 % (11.5-14.5); WHITE BLOOD COUNT 7.8 X10'3 (4.5-11.0)
[2021-10-09 13:11] LABS: ALBUMIN 3.7 G/DL (3.4-5.0); ANION GAP 11 (8-16); BLOOD UREA NITROGEN 17 MG/DL (7-18); CHLORIDE 101 MMOL/L (99-107); CREATININE 0.81 MG/DL (0.60-1.10); GLUCOSE 101 MG/DL (70-104); MAGNESIUM 2.1 MG/DL (1.5-2.4); POTASSIUM 3.5 MMOL/L (3.5-5.1); SODIUM 143 MMOL/L (135-145); TOTAL CARBON DIOXIDE 31.5 MMOL/L (24-32); eGFR > 90 ML/MIN
[2021-10-09 14:00] VITALS: BP 123/74
--- NOTE | 2021-10-09 17:30 | NUR ---
Mr. Barbour has been assessed as indicated. He has been noted to be both pleasant and cooperative. He has been visited by his most of the day. He is awaiting transport to [facility]. He has a bed on [facility] 6 Room 9 bed 1. THE REPORT HAS BEEN CALLED TO MARLON MANZANARES At [phone]. Even though report has been called finalized transportation arrangements are pending completion. His is aware of the transfer and He has been updated on the progress of the transportation.
--- NOTE | 2021-10-09 18:08 | NUR ---
Call received from Elba at [facility] a helicopter will be sent for Mr Barbour ETA 190 the helicopter will come from [place].
--- NOTE | 2021-10-09 18:15 | NUR ---
Problems reprioritized. Patient report given, questions answered & plan of care reviewed with CALVIN PIKE.
--- NOTE | 2021-10-09 19:31 | NUR ---
Patient in no apparent distress is being transferred to [facility] by air ambulance.
[2021-10-11 08:58] LABS: IMMUNOGLOBULIN E, TOTAL 2667 IU/mL (6-495)
== END 2021-10-09 20:00 | disposition short-term general hospital (02) | DRG 300 ==
LOC: MED 3N 13:32 → ICU 2S 10-06 13:07 → MED 3N 10-06 17:05
PROVIDERS: ADMIT Thoracic Surgery (Cardiothoracic Vascular Surgery); ATTEND Thoracic Surgery (Cardiothoracic Vascular Surgery)
PROC: 0B9L8ZX Drainage of Left Lung, Via Natural or Artificial Opening Endoscopic, Diagnostic (ICD-10-PCS; principal; 2021-10-06)
DX: I71.2 Thoracic aortic aneurysm, without rupture (principal); B44.81 Allergic bronchopulmonary aspergillosis; Z20.822 Contact with and (suspected) exposure to COVID-19; E78.5 Hyperlipidemia, unspecified; F17.200 Nicotine dependence, unspecified, uncomplicated; G40.909 Epilepsy, unspecified, not intractable, without status epilepticus; I10 Essential (primary) hypertension; D35.02 Benign neoplasm of left adrenal gland; I25.10 Atherosclerotic heart disease of native coronary artery without angina pectoris; J45.909 Unspecified asthma, uncomplicated; J47.9 Bronchiectasis, uncomplicated; Z79.51 Long term (current) use of inhaled steroids; Z79.82 Long term (current) use of aspirin; Z95.1 Presence of aortocoronary bypass graft; I25.2 Old myocardial infarction; Z79.899 Other long term (current) drug therapy; Z87.828 Personal history of other (healed) physical injury and trauma
CPT/HCPCS: 31645; 36415; 71275; 80048; 80185; 82784; 82785; 83735; 85025; 85610; 85730; 86606; 87070; 87081; 87635; 93005; 93306; 94010; 94640; 94760; G0378; J0171; J2250; J3010; Q9967

== ENCOUNTER 2024-06-09 14:16 | Outpatient (CLI) | payer MEDICARE, OTHER ==
[~2024-06-09 14:16] MED LIST changes: +ALBU6.7H14 INH; -ALBU6.7H9 INH; +ASPI-611 PO; +CHLO25TA10 PO; -CLOP75TA15 PO; -HYDR-4353 PO; -LOP25T PO; +LOSA100T58 PO; +LOSA50TA64 PO; +METO-384 PO; +METO1TAB12 PO; +PHEN100O3 PO; +ROSU20TA73 PO; +ROSU40TA71 PO; -SENN-166 PO; -SIMV-42 PO; +SPIR25TA5 PO
== END 2024-06-09 23:59 | disposition home or self-care (01) ==
LOC: RAD 14:16
PROVIDERS: ATTEND Physician Assistant
DX: M75.31 Calcific tendinitis of right shoulder (principal); M25.511 Pain in right shoulder
CPT/HCPCS: 73030